=== PATIENT | female | born 1950 | race Caucasian/White ===

== ENCOUNTER 2020-05-28 10:23 | Emergency (ER) | payer MEDICARE, OTHER, SELFPAY ==
[2020-05-28] VITALS (8 sets, daily range): BP systolic 111–145; BP diastolic 64–75; PULSE 70–84; RESP 14–18; TEMP 37.1–38; O2SAT 95–98; BMI 31.8
--- NOTE | 2020-05-28 11:07 | XRR_ITS ---
PROCEDURE INFORMATION: Exam: XR Chest, 1 View Exam date and time: 05/28/2020 11:08 AM Age: 70 years old Clinical indication: Patient HX: Fatigue, low grade fever TECHNIQUE: Imaging protocol: XR of the chest Views: 1 view. COMPARISON: No relevant prior studies available. FINDINGS: Lungs: Unremarkable. No consolidation. Pleural space: Unremarkable. No pleural effusion. No pneumothorax. Heart/Mediastinum: Unremarkable. No cardiomegaly. Bones/joints: Unremarkable. XR/XR chest 1V portable [id number] IMPRESSION: No acute findings.
--- NOTE | 2020-05-28 11:56 | W.ED.GENADLT ---
HPI - General Adult General: Chief complaint: General Medical Stated complaint: phy referral Time Seen by Provider: 05/28/20 11:40 History of Present Illness: HPI narrative: This patient is a 70 year old female presenting with generalized weakness, fatigue, chills, anorexia, diarrhea and headache. Her also notes that she has not been thinking clearly. Symptoms started on Thursday while she was in [place] for a . She says that before that she has done a major cleaning of her house for a few days and then had a long drive to [place] on . She initially thought she was just exhausted. She saw Dr. Navarro today and he wanted her to come to the ED and be worked up for possible infection. She denies pain anywhere - no cough, shortness of breath, chest pain, abdominal pain, urinary symptoms, rash. She had a headache and sharp pain in her temples, but that went away with some aspirin and is not there now. She had rheumatic fever as a child and has an irregular heart beat at times - she takes atenolol for that and it hasn't been a problem. Dr. navarro told her she had lost 8 pounds since her last visit and she has not been trying to lose weight. Onset (ago): day(s) (3) Associated symptoms: Reports confusion, decreased appetite, fevers/chills, headache(s), malaise and weakness; Deny chest pain, dyspnea, nausea, rash or vomiting Review of Systems General: Reports: 10 or more systems reviewed and unremarkable except in HPI and below Const: Reports: chills, body aches, malaise and change in sleep pattern Eyes: Denies: change in vision ENMT: Denies: odynophagia Card: Denies: chest pain or swelling of feet/ankles Resp: Denies: dyspnea, productive cough or non-productive cough GI: Reports: diarrhea; Denies: abdominal pain, nausea or vomiting : Denies: flank pain or difficulty voiding Musc: Denies: neck pain or back pain Skin/Breast: Denies: rash Neuro: Reports: headache(s) and confusion Aguilar/Lymph: Denies: easy bruising or easy bleeding PFSH ED PFSH: Social History Smoking and tobacco status: never smoked Physical Exam Const: COMMON NORMALS: no acute distress, patient oriented x3, no limitations and alert GENERAL APPEARANCE: cooperative and comfortable HENMT: HEAD & SCALP: normal to inspection FACE & SINUS: normal facial exam Eye: GENERAL EYE: appearance normal, both eyes and all related structures Neck/C-Spine: COMMON NORMALS: supple, no meningeal signs and no JVD Chest: COMMONS NORMALS: normal inspection of the chest Resp: COMMON NORMALS: normal respiratory effort, No use of accessory muscles and clear to auscultation bilaterally AUSCULTATION: clear to auscultation bilaterally Cardio: COMMON NORMALS: no JVD, regular rate and regular rhythm RATE: regular rate RHYTHM: regular rhythm HEART SOUNDS: Murmur heart sound present (12/05) systolic GI: COMMON NORMALS: Normal to inspection, nondistended, normoactive bowel sounds present, Soft to palpation and non-tender INSPECTION: Yes normal to inspection AUSCULTATION: Yes normoactive bowel sounds PALPATION: Yes Soft to palpation Back/Pelvis: COMMON NORMALS: thoracic and lumbar spine normal to inspection Extremity: COMMON NORMALS: normal to inspection Neuro: COMMON NORMALS: patient oriented x3, moves all extremities, no focal motor deficits and no sensory deficits noted SENSORIUM/ORIENTATION: Yes alert MENINGEAL SIGNS: Yes no meningeal signs Psych: COMMON NORMALS: mental status grossly normal, cooperative and normal affect Skin: COMMON NORMALS: no rashes or lesions noted and turgor normal GENERAL SKIN EXAM: no rashes or lesions noted and turgor normal Course ED course: Patient's labs show a white count of 3.4. Hemoglobin is normal. Platelets are only 71. Electrolytes are a sodium of 131, potassium 3.7. CO2 is 21. LFTs are slightly elevated at 144 for the AST and 77 for the ALT. Lactate is normal at 1.2. Urinalysis shows trace leuk esterase and 1+ bacteria but negative nitrite and negative white cells. That is +1 for protein, ketones and +2 for blood. There is no red blood cells on the micro. Sed rate was 9. Chest x-ray was clear. I spoke with Dr. Navarro and he had no record of prior elevated LFTs or low platelets. In discussion with him we decided to add a tick panel and given that she is having some GI symptoms and elevated LFTs we will also get a CT scan. We discussed possibly testing for COVID due to her travel to [place] but her symptoms actually started within 1 day of arrival there and are not likely related to the travel. She has not had exposure to anyone locally that she knows of. Reevaluation(s): Reevaluation #1: CT did not show any specific findings. Additional labs were significant for an elevated d-dimer at 3.95. She had a COVID test done and will be discharged home. She did develop a slight fever while in the ER, just above 100. She also had a headache again and was given some aspirin. She understands that she needs to return immediately if she is worsening in any way. I did put her on some doxycycline to cover the possibility of a UTI of the possibility of a tick related illness given that some of her lab values could be consistent with that as well as COVID. Vital Signs: Vital signs: Vital Signs Temperature 100.4 F H 05/28/20 17:01 Pulse Rate 77 05/28/20 17:30 Respiratory Rate 14 05/28/20 17:30 Blood Pressure 118/75 05/28/20 17:30 Pulse Oximetry 97 05/28/20 17:30 [facility] - General Adult Lab Data: Labs: Lab Results 05/28/20 05/28/20 05/28/20 Range/Units 11:45 12:00 12:00 WBC 3.4 L (4.0-10.0) 10^3/ uL RBC 5.10 (4.1-5.3) 10^6/u L Hgb 15.5 H (11.5-15.3) g/dL Hct 46.0 (37.0-47.0) % MCV 90.2 (81-99) fL MCH 30.4 (28.0-34.0) pg MCHC 33.7 (30.0-36.0) g/dL RDW 12.9 (12.1-15.1) % Plt Count 71 L (130-400) 10^3/c mm MPV 12.9 H (7.4-10.4) fL Neut % (Auto) 65.1 % Lymph % (Auto) 27.3 % [place] % (Auto) 7.0 % Eos % (Auto) 0.0 % Baso % (Auto) 0.3 % Neut # (Auto) 2.2 (1.8-7.7) 10^3/u L Lymph # (Auto) 0.9 (0.8-4.8) 10^3/u L [place] # (Auto) 0.2 (0.2-0.9) 10^3/u L Eos # (Auto) 0.0 (0.0-0.8) 10^3/u L Baso # (Auto) 0.0 (0.0-0.1) 10^3/u L Nucleated RBC % (a uto) 0 % Nucleated RBCs # 0.0 /100WBC ESR (0-15) mm/hr PT (10.5-13.3) SECO NDS INR (0.8-1.2) D-Dimer (0-0.59) ug/mIFE U Sodium 131 L (136-145) mmol/L Potassium 3.7 (3.5-5.1) mmol/L Chloride 95 L (98-107) mmol/L Carbon Dioxide 21 L (22-29) mmol/L Anion Gap 18.7 (5-19) BUN 21 (8-23) mg/dL Creatinine 0.8 (0.5-0.9) mg/dL GFR Calculation 70.9 L (90-130) mL/min Glucose 118 H (65-115) mg/dL Calculated Osmolal ity 270 L (285-295) mOsm/k g Lactate (0.5-2.2) mmol/L Calcium 9.5 (8.5-10.5) mg/dL Total Bilirubin 0.9 (0.15-1.2) mg/dL AST 144 H (0-32) U/L ALT 77 H (0-33) U/L Alkaline Phosphata se 69 (35-105) IU/L Troponin T Baselin e (0-10) ng/L Troponin T 120 Min te-moak (0-10) ng/L Delta Troponin T (0-10) ABS# Total Protein 7.2 (6.6-8.7) g/dL Albumin 4.2 (3.5-5.2) g/dL Globulin 3.0 (1.3-4.6) g/dL Procalcitonin (0-0.5) ng/mL Urine Color Yellow (Yellow) Urine Appearance Clear (CLEAR) Urine pH 5.0 (5-7) Ur Specific Gravit y 1.020 (1.005-1.030) Urine Protein 1+ H (Negative) Urine Glucose (UA) Norm (Normal) Urine Ketones 1+ H (Negative) Urine Blood 2+ H (Negative) Urine Nitrate Negative (Negative) Urine Bilirubin Neg (NEGATIVE) Urine Urobilinogen 1 H (Negative) mg/dL Ur Leukocyte Nery ase Trace H (Negative) Urine RBC None (0-2) /hpf Urine WBC None (0-5) /hpf Ur Squamous Epith Cells 0-4 H (0-5) Amorphous Sediment Not Reportable Urine Bacteria 1+ H (NONE) Urine Mucus 1+ 05/28/20 05/28/20 05/28/20 Range/Units 12:00 12:00 12:00 WBC (4.0-10.0) 10^3/ uL RBC (4.1-5.3) 10^6/u L Hgb (11.5-15.3) g/dL Hct (37.0-47.0) % MCV (81-99) fL MCH (28.0-34.0) pg MCHC (30.0-36.0) g/dL RDW (12.1-15.1) % Plt Count (130-400) 10^3/c mm MPV (7.4-10.4) fL Neut % (Auto) % Lymph % (Auto) % [place] % (Auto) % Eos % (Auto) % Baso % (Auto) % Neut # (Auto) (1.8-7.7) 10^3/u L Lymph # (Auto) (0.8-4.8) 10^3/u L [place] # (Auto) (0.2-0.9) 10^3/u L Eos # (Auto) (0.0-0.8) 10^3/u L Baso # (Auto) (0.0-0.1) 10^3/u L Nucleated RBC % (a uto) % Nucleated RBCs # /100WBC ESR 9 (0-15) mm/hr PT 13.60 H (10.5-13.3) SECO NDS INR 1.01 (0.8-1.2) D-Dimer 3.95 H (0-0.59) ug/mIFE U Sodium (136-145) mmol/L Potassium (3.5-5.1) mmol/L Chloride (98-107) mmol/L Carbon Dioxide (22-29) mmol/L Anion Gap (5-19) BUN (8-23) mg/dL Creatinine (0.5-0.9) mg/dL GFR Calculation (90-130) mL/min Glucose (65-115) mg/dL Calculated Osmolal ity (285-295) mOsm/k g Lactate 1.2 (0.5-2.2) mmol/L Calcium (8.5-10.5) mg/dL Total Bilirubin (0.15-1.2) mg/dL AST (0-32) U/L ALT (0-33) U/L Alkaline Phosphata se (35-105) IU/L Troponin T Baselin e (0-10) ng/L Troponin T 120 Min te-[place] (0-10) ng/L Delta Troponin T (0-10) ABS# Total Protein (6.6-8.7) g/dL Albumin (3.5-5.2) g/dL Globulin (1.3-4.6) g/dL Procalcitonin (0-0.5) ng/mL Urine Color (Yellow) Urine Appearance (CLEAR) Urine pH (5-7) Ur Specific Gravit y (1.005-1.030) Urine Protein (Negative) Urine Glucose (UA) (Normal) Urine Ketones (Negative) Urine Blood (Negative) Urine Nitrate (Negative) Urine Bilirubin (NEGATIVE) Urine Urobilinogen (Negative) mg/dL Ur Leukocyte Nery ase (Negative) Urine RBC (0-2) /hpf Urine WBC (0-5) /hpf Ur Squamous Epith Cells (0-5) Amorphous Sediment Urine Bacteria (NONE) Urine Mucus 05/28/20 05/28/20 05/28/20 Range/Units 12:00 12:00 14:05 WBC (4.0-10.0) 10^3/ uL RBC (4.1-5.3) 10^6/u L Hgb (11.5-15.3) g/dL Hct (37.0-47.0) % MCV (81-99) fL MCH (28.0-34.0) pg MCHC (30.0-36.0) g/dL RDW (12.1-15.1) % Plt Count (130-400) 10^3/c mm MPV (7.4-10.4) fL Neut % (Auto) % Lymph % (Auto) % [place] % (Auto) % Eos % (Auto) % Baso % (Auto) % Neut # (Auto) (1.8-7.7) 10^3/u L Lymph # (Auto) (0.8-4.8) 10^3/u L [place] # (Auto) (0.2-0.9) 10^3/u L Eos # (Auto) (0.0-0.8) 10^3/u L Baso # (Auto) (0.0-0.1) 10^3/u L Nucleated RBC % (a uto) % Nucleated RBCs # /100WBC ESR (0-15) mm/hr PT (10.5-13.3) SECO NDS INR (0.8-1.2) D-Dimer (0-0.59) ug/mIFE U Sodium (136-145) mmol/L Potassium (3.5-5.1) mmol/L Chloride (98-107) mmol/L Carbon Dioxide (22-29) mmol/L Anion Gap (5-19) BUN (8-23) mg/dL Creatinine (0.5-0.9) mg/dL GFR Calculation (90-130) mL/min Glucose (65-115) mg/dL Calculated Osmolal ity (285-295) mOsm/k g Lactate (0.5-2.2) mmol/L Calcium (8.5-10.5) mg/dL Total Bilirubin (0.15-1.2) mg/dL AST (0-32) U/L ALT (0-33) U/L Alkaline Phosphata se (35-105) IU/L Troponin T Baselin e 12 H (0-10) ng/L Troponin T 120 Min te-moak 11.06 H (0-10) ng/L Delta Troponin T -0.94 L (0-10) ABS# Total Protein (6.6-8.7) g/dL Albumin (3.5-5.2) g/dL Globulin (1.3-4.6) g/dL Procalcitonin 0.68 H (0-0.5) ng/mL Urine Color (Yellow) Urine Appearance (CLEAR) Urine pH (5-7) Ur Specific Gravit y (1.005-1.030) Urine Protein (Negative) Urine Glucose (UA) (Normal) Urine Ketones (Negative) Urine Blood (Negative) Urine Nitrate (Negative) Urine Bilirubin (NEGATIVE) Urine Urobilinogen (Negative) mg/dL Ur Leukocyte Nery ase (Negative) Urine RBC (0-2) /hpf Urine WBC (0-5) /hpf Ur Squamous Epith Cells (0-5) Amorphous Sediment Urine Bacteria (NONE) Urine Mucus Discharge Plan Discharge Patient Disposition: Home, Self-Care Clinical Impression: COVID-19 virus test result unknown, Acute UTI Fever Qualifiers: Fever type: unspecified Qualified Code(s): R50.9 - Fever, unspecified Condition: Stable Prescriptions: New doxycycline hyclate 100 mg capsule 100 mg PO BID 14 Days Qty: 28 RF: 0 No Action multivitamin Tablet 1 tab PO DAILY RF: 0 aspirin 325 mg Tablet See Rx Instructions .ROUTE .COMPLEX RF: 0 Calcium 600 600 mg calcium (1,500 mg) Tablet 600 mg PO DAILY RF: 0 Vitamin C 500 mg Tablet 500 mg PO DAILY RF: 0 atenolol 50 mg tablet 50 mg PO DAILY RF: 0 loratadine 10 mg Tablet 10 mg PO DAILY RF: 0 Vitamin D3 25 mcg (1,000 unit) Capsule 25 mcg PO DAILY RF: 0 PreserVision AREDS-2 [id number] cm-pwvw-jc-mg Capsule 1 tab PO DAILY RF: 0 Discharge Orders: Discharge Order (Routine); Ordered 05/28/20 Ordered By: Ana Vila Referrals: Bjorn Navarro MD [Family Provider] - Discharge Diet: Advance as tolerated Discharge Activity: Limit activity as instructed Patient Instructions: Fever in Adults (ED) Activity Restrictions/Additional Instructions: Rest. Return to the ED if worse in any way including higher fever, shortness of breath, worse headache. You may continue to use aspirin for your headache. Call Dr. Navarro's office in the morning to check in and see when they like to follow-up with you. Take the antibiotic as prescribed to treat possible infection. Discharge Date/Time: 05/28/20 17:31 Coding Level of Care Code ED [facility] Exam Comprehensive
[2020-05-28 12:17] LABS: Bilirubin Urine Neg (NEGATIVE); Blood Urine 2+ (Negative); Glucose Urine UA Norm (Normal); Ketones Urine 1+ (Negative); Leukocyte Esterase Urine Trace (Negative); Nitrate Urine Negative (Negative); Protein Urine 1+ (Negative); Urine Appearance Clear (CLEAR); Urine Color Yellow (Yellow); Urobilinogen Urine 1 mg/dL (Negative)
[2020-05-28 12:18] LABS: Add Urine Culture? No; Add Urine Microscopic? YES; Bacteria Urine 1+; Mucus Urine 1+; Squamous Epithelial Cell Urine 0-4 (0-5)
[2020-05-28 12:25] LABS: Alanine Aminotransferase 77 U/L (0-33); Albumin Level 4.2 g/dL (3.5-5.2); Alkaline Phosphatase 69 IU/L (35-105); Anion Gap 18.7 (5-19); Aspartate Amino Transferase 144 U/L (0-32); Blood Urea Nitrogen 21 mg/dL (8-23); Calcium 9.5 mg/dL (8.5-10.5); Carbon Dioxide 21 mmol/L (22-29); Chloride 95 mmol/L (98-107); Glomerular Filtration Rate 70.9 mL/min (90-130); Glucose 118 mg/dL (65-115); Lactate (Lactic Acid level) 1.2 mmol/L (0.5-2.2); Osmolality Calculated 270 mOsm/kg (285-295); Potassium 3.7 mmol/L (3.5-5.1); Sodium 131 mmol/L (136-145); Total Bilirubin 0.9 mg/dL (0.15-1.2); Total Protein 7.2 g/dL (6.6-8.7)
[2020-05-28 12:36] LABS: Basophils % 0.3 %; Hemoglobin 15.5 g/dL (11.5-15.3); Lymphocytes # 0.9 10^3/uL (0.8-4.8); Lymphocytes % 27.3 %; Mean Corpuscular HGB Conc 33.7 g/dL (30.0-36.0); Mean Corpuscular Hemoglobin 30.4 pg (28.0-34.0); Mean Corpuscular Volume 90.2 fL (81-99); Mean Platelet Volume 12.9 fL (7.4-10.4); Monocytes # 0.2 10^3/uL (0.2-0.9); Neutrophils # 2.2 10^3/uL (1.8-7.7); Neutrophils % 65.1 %; Nucleated Red Blood Cells % 0 %; Platelet Count 71 10^3/cmm (130-400); Red Cell Distribution Width 12.9 % (12.1-15.1); White Blood Count 3.4 10^3/uL (4.0-10.0)
[2020-05-28 12:55] LABS: Slide Review Slide Review Perform
[2020-05-28 13:30] LABS: Erythrocyte Sedimentation Rate 9 mm/hr (0-15)
--- NOTE | 2020-05-28 13:52 | ECG_ITS ---
[facility] Test Date: 2020-05-28 Pat Name: Parisa Krishnan Department: Room: Gender: Female Care Professional: : 1950 Requested By: Ana Nesbitt Order Number: [id number] Reading MD: Luciano Viera M.D. Measurements Intervals [place] Rate: 77 P: 72 MT: 155 QRS: -4 QRSD: 83 T: -11 QT: 347 QTc: 395 Interpretive Statements SINUS RHYTHM ST DEVIATION AND MODERATE T-WAVE ABNORMALITY, CONSIDER ANTERIOR ISCHEMIA [-0.1+ mV T WAVE IN V3/V4] No previous ECG available for comparison Electronically Signed On 05-28-2020 16:54:31 CDT by Luciano Viera M.D. [id number]
--- NOTE | 2020-05-28 14:06 | PC.NURSE ---
nurse in room
[2020-05-28 14:09] LABS: INR 1.01 (0.8-1.2)
[2020-05-28 14:12] LABS: D Dimer 3.95 ug/mIFEU (0-0.59)
[2020-05-28 14:17] LABS: Troponin(5th) Baseline 12 ng/L (0-10)
[2020-05-28 14:25] LABS: Procalcitonin 0.68 ng/mL (0-0.5)
--- NOTE | 2020-05-28 14:25 | CTR_ITS ---
PROCEDURE INFORMATION: Exam: CT Angiography Chest With Contrast Exam date and time: 05/28/2020 2:35 PM Age: 70 years old Clinical indication: Abnormal findings; Abnormal lab test; Abnormal function test of other organs/systems; Abnormal diagnostic tests; Elevated d-dimer; Patient HX: General weakness. Elevated d dimer and lfts; Additional info: Chills, diarrhea, elevated lft and d-dimer TECHNIQUE: Imaging protocol: Computed tomographic angiography of the chest with intravenous contrast. 3D rendering: MIP and/or 3D reconstructed images were created by the technologist. Radiation optimization: All CT scans at this facility use at least one of these dose optimization techniques: automated exposure control; mA and/or kV adjustment per patient size (includes targeted exams where dose is matched to clinical indication); or iterative reconstruction. Contrast material: OMNI 350; Contrast volume: 95 ml; Contrast route: INTRAVENOUS (IV); COMPARISON: CR XR chest 1V portable [id number] 05/28/2020 11:37 AM RADIATION DOSE METRICS: Total DLP (mGy-cm): 1463.13 FINDINGS: Pulmonary arteries: Normal. No pulmonary emboli. Aorta: Unremarkable. No aortic aneurysm. No aortic dissection. Lungs: Unremarkable. No consolidation. No masses. Pleural space: Unremarkable. No pneumothorax. No pleural effusion. Heart: Unremarkable. No cardiomegaly. No pericardial effusion. Lymph nodes: Unremarkable. No enlarged lymph nodes. Bones/joints: Degenerative change is identified in the spine. There is no evidence for acute fracture or malalignment. Soft tissues: Unremarkable. IMPRESSION: There are no acute concerning abnormalities. There is no evidence for a pulmonary embolus. PROCEDURE INFORMATION: Exam: CT Abdomen And Pelvis With Contrast Exam date and time: 05/28/2020 2:35 PM Age: 70 years old Clinical indication: Abnormal findings; Abnormal lab test; Abnormal function test of other organs/systems; Abnormal diagnostic tests; Elevated d-dimer; Patient HX: General weakness. Elevated d dimer and lfts; Additional info: Chills, diarrhea, elevated lft and d-dimer TECHNIQUE: Imaging protocol: Computed tomography of the abdomen and pelvis with intravenous contrast. Radiation optimization: All CT scans at this facility use at least one of these dose optimization techniques: automated exposure control; mA and/or kV adjustment per patient size (includes targeted exams where dose is matched to clinical indication); or iterative reconstruction. Contrast material: OMNI 350; Contrast volume: 95 ml; Contrast route: INTRAVENOUS (IV); COMPARISON: CR XR chest 1V portable [id number] 05/28/2020 11:37 AM RADIATION DOSE METRICS: Total DLP (mGy-cm): 1463.13 FINDINGS: Liver: Normal. No mass. Gallbladder and bile ducts: Normal. No calcified stones. No ductal dilation. Pancreas: Normal. No ductal dilation. Spleen: Normal. No splenomegaly. Adrenals: Normal. No mass. Kidneys and ureters: Normal. No hydronephrosis. Stomach and bowel: Unremarkable. No obstruction. No mucosal thickening. Appendix: No evidence of appendicitis. Intraperitoneal space: Unremarkable. No free air. No significant fluid collection. Vasculature: Unremarkable. No abdominal aortic aneurysm. Lymph nodes: Unremarkable. No enlarged lymph nodes. Bladder: Unremarkable as visualized. Reproductive: Unremarkable as visualized. Bones/joints: Unremarkable. No acute fracture. Soft tissues: Unremarkable. CT/CT angio chest w abd pel w con IMPRESSION: No acute findings. Radiation Dose CTDIVOL = (mGy): DLP = 1463.13~1463.13 (mGy-cm)
[2020-05-28 14:34] LABS: Troponin 5 2HR 11.06 ng/L (0-10)
[2020-05-28 14:37] LABS: Troponin 5 2HR Delta -0.94 ABS# (0-10)
[2020-05-28] MEDS: sodium chloride 0.9% 1,000 ML 999 ML IV (14:47)
[2020-05-28] MEDS: aspirin 325 mg Tablet 650 MG PO (16:59)
[2020-05-30 07:20] LABS: Quest SARS-CoV-2 RNA NOT DETECTED (NOT DETECTED)
[2020-05-30 13:00] LABS: Lyme AB Screen <0.90 index
[2020-06-03 16:15] LABS: E. Chaffeensis AB IGG <1:64; E. Chaffeensis AB IGM <1:20
[2020-06-05 16:31] LABS: RMSF IGG DETECTED; RMSF IGM NOT DETECTED
== END 2020-05-28 17:31 | disposition home or self-care (01) ==
PROVIDERS: Nurse Practitioner Family; Emergency Provider Emergency Medicine; Family Provider Family Medicine
DX: Z20.828 Contact with and (suspected) exposure to other viral communicable diseases (principal); Z79.82 Long term (current) use of aspirin; N39.0 Urinary tract infection, site not specified
CPT/HCPCS: 12345; 36415; 71045; 71275; 74177; 80053; 81001; 83605; 84145; 84484; 85025; 85378; 85610; 85651; 86618; 86666; 86757; 87040; 87635; 93005; 96360; 96361; 99283; 99284; J7030; Q9967

== ENCOUNTER → 2020-11-19 10:51 | Outpatient (BNVA) | payer MEDICARE, OTHER, SELFPAY | PROVIDERS: Family Provider Family Medicine; Visit Provider Family Medicine | DX: Z20.828 Contact with and (suspected) exposure to other viral communicable diseases (principal) | CPT/HCPCS: 87635 ==

== ENCOUNTER 2022-05-08 08:37 | Outpatient (CLI) | payer MEDICARE, OTHER, SELFPAY ==
--- NOTE | 2022-05-08 08:53 | MM_ITS ---
WS: [id number] VIEWS: MLO and CC views both breasts. 3D digital tomosynthesis is also included in this exam. Comparison made with prior exam of 08/01/2009, 01/14/2013, 04/28/2014, 07/19/2015, 09/16/2016,. Findings: There was no sign of mass, architectural distortion or suspicious calcification in either breast. Sc attered fibroglandular densities MM/[place] [id number] Impression: BI-RADS: 2-Benign FOLLOW-UP: 1 Year Follow-up This mammogram was also analyzed by the Computer Aided Detection System R2 Imag e Chemical Librarian.
== END 2022-05-08 08:38 | disposition home or self-care (01) ==
LOC: RAD 08:42
PROVIDERS: Visit Provider Family Medicine
DX: Z12.31 Encounter for screening mammogram for malignant neoplasm of breast (principal)
CPT/HCPCS: 77063; 77067

== ENCOUNTER → 2024-01-13 11:35 | Outpatient (BNVA) | payer MEDICARE, OTHER, SELFPAY | PROVIDERS: PCP Family Medicine; Visit Provider Family Medicine | DX: R30.0 Dysuria (principal); N39.0 Urinary tract infection, site not specified; Z51.81 Encounter for therapeutic drug level monitoring; I10 Essential (primary) hypertension; R53.81 Other malaise; R53.83 Other fatigue; E55.9 Vitamin D deficiency, unspecified; E53.8 Deficiency of other specified B group vitamins; R73.09 Other abnormal glucose; Z13.220 Encounter for screening for lipoid disorders; Z79.899 Other long term (current) drug therapy | CPT/HCPCS: 80053; 80061; 81000; 82306; 82607; 83036; 84443; 85025; 86141; 87086 ==

== ENCOUNTER 2024-06-02 18:10 | Inpatient (IN) | payer MEDICARE, SELFPAY ==
[2024-06-02] VITALS (10 sets, daily range): BP systolic 134–177; BP diastolic 65–89; PULSE 58–90; RESP 15–18; TEMP 37.1–37.3; O2SAT 94–99; BMI 30.9
--- NOTE | 2024-06-02 18:18 | PC.NURSE ---
Charge nurse notified of patient's neuro symptoms, pt taken to ER room 5
--- NOTE | 2024-06-02 18:35 | CTR_ITS ---
PROCEDURE INFORMATION: Exam: CTA Head With Contrast, Arteriography Exam date and time: 06/02/2024 6:49 PM Age: 74 years old Clinical indication: Stroke-like symptoms; Other: See above TECHNIQUE: Imaging protocol: Computed tomographic angiography of the head with contrast. Exam focused on the arteries. 3D rendering (Not supervised by radiologist): MIP and/or 3D reconstructed images were created by the technologist. Radiation optimization: All CT scans at this facility use at least one of these dose optimization techniques: automated exposure control; mA and/or kV adjustment per patient size (includes targeted exams where dose is matched to clinical indication); or iterative reconstruction. Contrast material: OMNI 350; Contrast volume: 100 ml; Contrast route: INTRAVENOUS (IV); COMPARISON: CT head thrombolytic [id number] 06/02/2024 6:37 PM RADIATION DOSE METRICS: Total DLP (mGy-cm): 515.16 FINDINGS: ANTERIOR CIRCULATION: Right internal carotid artery: Patent. Right middle cerebral artery: Patent. Right anterior cerebral artery: Patent. Left internal carotid artery: Patent. There is a 3 mm aneurysm projecting superiorly from the left clinoid ICA (image 66 of series 7). Left middle cerebral artery: Patent. Left anterior cerebral artery: Patent. POSTERIOR CIRCULATION: Right vertebral artery: Patent. Left vertebral artery: Patent. Basilar artery: Patent. Right posterior cerebral artery: Patent. Left posterior cerebral artery: Patent. PROCEDURE INFORMATION: Exam: CTA Neck With Contrast Exam date and time: 06/02/2024 6:49 PM Age: 74 years old Clinical indication: Stroke-like symptoms; Other: See above TECHNIQUE: Imaging protocol: Computed tomographic angiography of the neck with contrast. Exam focused on the cervical segments of the vasculature. 3D rendering (Not supervised by radiologist): MIP and/or 3D reconstructed images were created by the technologist. Radiation optimization: All CT scans at this facility use at least one of these dose optimization techniques: automated exposure control; mA and/or kV adjustment per patient size (includes targeted exams where dose is matched to clinical indication); or iterative reconstruction. Contrast material: OMNI 350; Contrast volume: 100 ml; Contrast route: INTRAVENOUS (IV); COMPARISON: CT head thrombolytic [id number] 06/02/2024 6:37 PM RADIATION DOSE METRICS: Total DLP (mGy-cm): 515.16 FINDINGS: Aortic arch: No aneurysmal dilatation or dissection of the visualized thoracic aorta. Right common carotid artery: Patent. No evidence of hemodynamically significant stenosis. Right internal carotid artery: Patent. No evidence of hemodynamically significant stenosis. Right external carotid artery: Patent. Left common carotid artery: Patent. No evidence of hemodynamically significant stenosis. Left internal carotid artery: Patent. No evidence of hemodynamically significant stenosis. Left external carotid artery: Patent. Right vertebral artery: Patent. Left vertebral artery: Patent. Soft tissues: 15 mm right-sided thyroid nodule. No evidence of fluid collection or hematoma. Bones/joints: No evidence of acute fracture or subluxation of the cervical spine. Multilevel moderate-severe foraminal stenosis of the cervical spine, including C3-C4 on the right, C4-C5 on the left, C5-C6 on the right and C6-C7 bilaterally. CT/CT angio headneck* [id number] IMPRESSION: 1. No evidence of large vessel occlusion or acute thrombosis in the head. 2. 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 IMPRESSION: 1. No evidence of acute thrombosis or hemodynamically significant stenosis in the neck. 2. Moderate-severe multilevel foraminal stenosis of the cervical spine. Consider correlation with follow-up outpatient MRI to evaluate for neural impingement. 3. 15 mm right-sided thyroid nodule. Correlation with thyroid function tests and follow-up outpatient thyroid ultrasound is recommended. REFERENCES: NASCET CRITERIA. The degree of stenosis in the cervical segment of the internal carotid artery is based on NASCET criteria. Normal is no stenosis. Mild is less than 50% stenosis. Moderate is 50-69% stenosis. Severe is 70% to 99% stenosis. Total occlusion is no detectable patent lumen.
--- NOTE | 2024-06-02 18:35 | CTR_ITS ---
PROCEDURE INFORMATION: Exam: CT Head Without Contrast Exam date and time: 06/02/2024 6:37 PM Age: 74 years old Clinical indication: Stroke-like symptoms; Other: Vision problems; Additional info: Symptoms of acute stroke TECHNIQUE: Imaging protocol: Computed tomography of the head without contrast. Radiation optimization: All CT scans at this facility use at least one of these dose optimization techniques: automated exposure control; mA and/or kV adjustment per patient size (includes targeted exams where dose is matched to clinical indication); or iterative reconstruction. Other technique: STROKE PROTOCOL was implemented. COMPARISON: CT head wo con* [id number] 08/16/2017 8:46 PM RADIATION DOSE METRICS: Total DLP (mGy-cm): 1084 FINDINGS: Brain: No hemorrhage. No edema. Moderate diffuse cerebral atrophy and mild sequela of chronic small vessel ischemic disease. No mass effect. Cerebral ventricles: No ventriculomegaly. Paranasal sinuses: Visualized sinuses are unremarkable. No fluid levels. Mastoid air cells: Visualized mastoid air cells are well aerated. Bones: Unremarkable. No acute fracture. Soft tissues: Unremarkable. CT/CT head thrombolytic [id number] IMPRESSION: No acute intracranial abnormality. ASSESSMENT: ASPECTS ([place] Stroke Program Early CT Score) is 10.
--- NOTE | 2024-06-02 18:35 | ECG_ITS ---
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 Measurements Intervals [place] Rate: 77 P: 67 [place]: 147 QRS: -2 QRSD: 80 T: 7 QT: 358 QTc: 407 Interpretive Statements SINUS RHYTHM LOW QRS VOLTAGE IN PRECORDIAL LEADS [QRS DEFLECTION < 1.0 mV IN CHEST LEADS] MODERATE ST DEPRESSION [0.05+ mV ST DEPRESSION] Compared to ECG 05/28/2020 14:10:31 Low QRS voltage now present ST (T wave) deviation now present T-wave abnormality no longer present Possible ischemia no longer present Electronically Signed On 06-02-2024 20:18:43 CDT by Viktor Aguiar M.D. [id number]
--- NOTE | 2024-06-02 18:46 | W.ED.NEUROSD ---
HPI - Neuro Symptoms/Deficit General: Chief Complaint: Neuro Symptoms/Deficit Stated Complaint: left eye is losing vision loss of balance Time Seen by Provider: 06/02/24 18:24 History of Present Illness: Patient comes in with stroke symptoms. States that at 234 hours prior to arrival she developed sudden onset vision loss in the right side of her left eye. States she does not see out of her right eye so she does not know if it happened there as well. States she also developed an abnormal gait felt like she was off balance and had to hold onto things to walk. Denies any one-sided weakness or numbness. Review of Systems General: Reports: 10 or more systems reviewed and unremarkable except in HPI and below PFSH ED PFSH: Social History Smoking and tobacco/nicotine status: never used tobacco/nicotine Physical Exam Const: COMMON NORMALS: no acute distress, patient oriented x3, healthy appearing and alert HENMT: COMMON NORMALS: normocephalic and atraumatic HEAD & SCALP: normocephalic and atraumatic Eye: COMMON NORMALS: Equal, round and reactive pupils present and EOMs intact bilaterally PUPIL: Yes Equal, round and reactive pupils present Neck/C-Spine: COMMON NORMALS: full ROM and supple Resp: COMMON NORMALS: normal respiratory effort, No retractions and No use of accessory muscles Cardio: COMMON NORMALS: regular rate and regular rhythm RATE: regular rate RHYTHM: regular rhythm Extremity: COMMON NORMALS: normal to inspection and full ROM Neuro: COMMON NORMALS: patient oriented x3 SENSORIUM/ORIENTATION: Yes alert OTHER: NIHSS= 0 Truncal stability normal Nystagmus normal Psych: COMMON NORMALS: mental status grossly normal and cooperative Skin: COMMON NORMALS: no rashes or lesions noted and no wounds GENERAL SKIN EXAM: no rashes or lesions noted Course Vital Signs: Vital signs: Vital Signs Temperature 99.1 F 06/02/24 18:19 Pulse Rate 58 L 06/02/24 20:14 Respiratory Rate 15 06/02/24 20:14 Blood Pressure 148/74 06/02/24 20:14 Pulse Oximetry 96 06/02/24 20:14 Oxygen Delivery Me thod Room Air 06/02/24 20:14 MDM - Neuro Symptoms/Deficit Medical Decision Making Differential diagnosis: TIA, stroke, acute electrolyte abnormality Patient comes in with stroke symptoms. States that at 234 hours prior to arrival she developed sudden onset vision loss in the right side of her left eye. States she does not see out of her right eye so she does not know if it happened there as well. States she also developed an abnormal gait felt like she was off balance and had to hold onto things to walk. Denies any one-sided weakness or numbness. On physical exam her visual edgar are intact in the left eye at this time. Her gait is normal. Her symptoms seem to have resolved. Will check CT, labs, and reassess. On reassessment I talked to the patient about the test results. Her white blood cell count is normal at 5.8. Her sodium, potassium, and creatinine are within normal limits. Her head CT shows no acute intracranial abnormality. She continues to be asymptomatic at this time. I talked to Dr. Rivas with the hospitalist service and we will admit the patient for TIA workup. Lab Data 06/02/24 19:20 06/02/24 19:[address] 06/02/24 18:35 IMPRESSION: No acute intracranial abnormality. ASSESSMENT: ASPECTS (Alfreda Stroke Program Early CT Score) is 10. Head/Neck CTA 06/02/24 18:35 IMPRESSION: 1. No evidence of large vessel occlusion or acute thrombosis in the head. 2. 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 IMPRESSION: 1. No evidence of acute thrombosis or hemodynamically significant stenosis in the neck. 2. Moderate-severe multilevel foraminal stenosis of the cervical spine. Consider correlation with follow-up outpatient MRI to evaluate for neural impingement. 3. 15 mm right-sided thyroid nodule. Correlation with thyroid function tests and follow-up outpatient thyroid ultrasound is recommended. REFERENCES: NASCET CRITERIA. The degree of stenosis in the cervical segment of the internal carotid artery is based on NASCET criteria. Normal is no stenosis. Mild is less than 50% stenosis. Moderate is 50-69% stenosis. Severe is 70% to 99% stenosis. Total occlusion is no detectable patent lumen. Laboratory Results WBC 5.81 10^3/uL (3.29-11.43) 06/02/24 19:20 RBC 4.46 10^6/uL (3.85-5.65) 06/02/24 19:20 Hgb 13.30 g/dL (11.27-16.99) 06/02/24 19:20 Hct 40.9 % (36-47) 06/02/24 19:20 MCV 91.7 fl (85-98) 06/02/24 19:20 MCH 29.8 pg (27-33) 06/02/24 19:20 MCHC 32.5 g/dL (30-55) 06/02/24 19:20 RDW 13.2 % (12.1-15.1) 06/02/24 19:20 Plt Count 267 10^3/cmm (157-399) 06/02/24 19:20 MPV 10.8 fL (7.4-10.4) H 06/02/24 19:20 Neut % (Auto) 52.9 % 06/02/24 19:20 Lymph % (Auto) 35.3 % 06/02/24 19:20 [place] % (Auto) 8.8 % 06/02/24 19:20 Eos % (Auto) 2.1 % 06/02/24 19:20 Baso % (Auto) 0.7 % 06/02/24 19:20 Neut # (Auto) 3.08 10^3/uL (1.8-7.7) 06/02/24 19:20 Lymph # (Auto) 2.1 10^3/uL (0.8-4.8) 06/02/24 19:20 [place] # (Auto) 0.5 10^3/uL (0.2-0.9) 06/02/24 19:20 Eos # (Auto) 0.1 10^3/uL (0.0-0.8) 06/02/24 19:20 Baso # (Auto) 0.0 10^3/uL (0.0-0.1) 06/02/24 19:20 Nucleated RBC % (auto) 0 % 06/02/24 19:20 Nucleated RBCs # 0.0 /100WBC 06/02/24 19:20 PT 12.90 SECONDS (12.1-14.9) 06/02/24 19:20 INR 0.95 (0.8-1.2) 06/02/24 19:20 APTT 27.0 SECONDS (23.9-36.7) 06/02/24 19:20 Sodium 136 mmol/L (136-145) 06/02/24 19:20 Potassium 3.5 mmol/L (3.5-5.1) 06/02/24 19:20 Chloride 102 mmol/L (98-107) 06/02/24 19:20 Carbon Dioxide 25 mmol/L (22-29) 06/02/24 19:20 Anion Gap 12.5 (5-19) 06/02/24 19:20 BUN 17 mg/dL (8-23) 06/02/24 19:20 Creatinine 0.8 mg/dL (0.5-0.9) 06/02/24 19:20 GFR Calculation Not Reportable 06/02/24 19:20 Glucose 128 mg/dL (65-115) H 06/02/24 19:20 POC Glucose 138 mg/dL (70-110) H 06/02/24 19:10 Calculated Osmolality 285 mOsm/kg (285-295) 06/02/24 19:20 Calcium 9.3 mg/dL (8.5-10.5) 06/02/24 19:20 Total Bilirubin 0.3 mg/dL (0.15-1.2) 06/02/24 19:20 AST 18 U/L (0-32) 06/02/24 19:20 ALT 14 U/L (0-33) 06/02/24 19:20 Alkaline Phosphatase 92 U/L (35-105) 06/02/24 19:20 Total Protein 6.4 g/dL (6.6-8.7) L 06/02/24 19:20 Albumin 3.7 g/dL (3.5-5.2) 06/02/24 19:20 Globulin 2.7 g/dL (1.3-4.6) 06/02/24 19:20 Urine Color Yellow (Yellow) 06/02/24 19:26 Urine Appearance Clear (CLEAR) 06/02/24 19:26 Urine pH 6.5 (5-7) 06/02/24 19:26 Ur Specific [place] 1.010 (1.005-1.030) 06/02/24 19:26 Urine Protein 1+ (Negative) H 06/02/24 19:26 Urine Glucose (UA) Norm (Normal) 06/02/24 19:26 Urine Ketones 1+ (Negative) H 06/02/24 19:26 Urine Blood Neg (Negative) 06/02/24 19:26 Urine Nitrate Negative (Negative) 06/02/24 19:26 Urine Bilirubin Neg (Negative) 06/02/24 19:26 Urine Urobilinogen Neg mg/dL (Negative) 06/02/24 19:26 Ur Leukocyte Esterase Trace (Negative) H 06/02/24 19:26 Urine RBC 5-10 /hpf (0-2) H 06/02/24 19:26 Urine WBC 0-4 /hpf (0-5) H 06/02/24 19:26 Ur Squamous Epith Cells 5-10 /hpf (0-5) H 06/02/24 19:26 Calcium Oxalate Crystal 15-25 /hpf H 06/02/24 19:26 Amorphous Sediment Not Reportable 06/02/24 19:26 Urine Bacteria 1+ /hpf (NONE) H 06/02/24 19:26 Hyaline Casts 0-4 /lpf H 06/02/24 19:26 Urine Mucus 1+ /hpf 06/02/24 19:26 All radiology interpretation(s) finalized by discharge EKG Data EKG 1: Interpretation: ECG done June 02, 2024 at 7 PM and interpreted by me at 7:02 PM shows sinus rhythm, ventricular rate of 77 bpm, no ST segment elevation Discharge Plan Discharge Patient Disposition: Placed in Observation Clinical Impression: Transient ischemic attack Coding Level of Care Code ED Director Of Strategic Initiatives for Kellee Granados
[2024-06-02] MEDS: iohexol 350 mg/mL 500 mL Btl (per mL) IV (18:57)
[2024-06-02 19:14] LABS: Glucose Point of Care 138 mg/dL (70-110)
[2024-06-02 19:26] LABS: Basophils % 0.7 %; Eosinophils # 0.1 10^3/uL (0.0-0.8); Eosinophils % 2.1 %; Hematocrit 40.9 % (36-47); Lymphocytes # 2.1 10^3/uL (0.8-4.8); Lymphocytes % 35.3 %; Mean Corpuscular HGB Conc 32.5 g/dL (30-55); Mean Corpuscular Hemoglobin 29.8 pg (27-33); Mean Corpuscular Volume 91.7 fl (85-98); Mean Platelet Volume 10.8 fL (7.4-10.4); Monocytes # 0.5 10^3/uL (0.2-0.9); Monocytes % 8.8 %; Neutrophils # 3.08 10^3/uL (1.8-7.7); Neutrophils % 52.9 %; Nucleated Red Blood Cells % 0 %; Platelet Count 267 10^3/cmm (157-399); Red Blood Count 4.46 10^6/uL (3.85-5.65); Red Cell Distribution Width 13.2 % (12.1-15.1); White Blood Count 5.81 10^3/uL (3.29-11.43)
[2024-06-02 19:41] LABS: INR 0.95 (0.8-1.2)
[2024-06-02 19:46] LABS: Alanine Aminotransferase 14 U/L (0-33); Albumin Level 3.7 g/dL (3.5-5.2); Alkaline Phosphatase 92 U/L (35-105); Anion Gap 12.5 (5-19); Aspartate Amino Transferase 18 U/L (0-32); Blood Urea Nitrogen 17 mg/dL (8-23); Calcium 9.3 mg/dL (8.5-10.5); Carbon Dioxide 25 mmol/L (22-29); Chloride 102 mmol/L (98-107); Creatinine Clr Calc Pharmacy 59.1415; Globulin 2.7 g/dL (1.3-4.6); Glucose 128 mg/dL (65-115); Osmolality Calculated 285 mOsm/kg (285-295); Potassium 3.5 mmol/L (3.5-5.1); Sodium 136 mmol/L (136-145); Total Bilirubin 0.3 mg/dL (0.15-1.2); Total Protein 6.4 g/dL (6.6-8.7)
[2024-06-02 19:55] LABS: Add Urine Microscopic? YES; Bacteria Urine 1+ /hpf; Bilirubin Urine Neg (Negative); Blood Urine Neg (Negative); Calcium Oxalate Crystals Urine 15-25 /hpf; Glucose Urine UA Norm (Normal); Hyaline Casts Urine 0-4 /lpf; Ketones Urine 1+ (Negative); Leukocyte Esterase Urine Trace (Negative); Mucus Urine 1+ /hpf; Nitrate Urine Negative (Negative); Protein Urine 1+ (Negative); Urine Appearance Clear (CLEAR); Urine Color Yellow (Yellow); Urobilinogen Urine Neg (Negative); WBC Urine 0-4 /hpf (0-5); pH Urine 6.5 (5-7)
--- NOTE | 2024-06-02 21:21 | P.HP_ITS ---
Providers/Chief Complaint 2 Admitting Physician: Adelita Rivas MD Primary Care Provider: Bjorn Navarro MD Chief Complaint: left eye is losing vision loss of balance History of Present Illness Parisa Krishnan is a 74 year old female With no significant past medical history presented to the hospital today with strokelike symptoms. Few hours prior to arrival she developed sudden onset loss on the right side of her left eye and she has reduced vision from the right eye already 2/2 to macular degeneration therefore does not know there was an issue there. She felt she could not walk straight and was off balance. She had to hold onto things to get around. Denies any numbness or weakness. By the time she admitted to the ER symptoms started resolving and resolved later on. On physical exam her visual edgar and left eye were intact at the time. Gait was normal. All symptoms resolved in ER. CT head was checked, CT a head and neck done with no significant thrombosis or stenosis. Moderate to severe level foraminal stenosis of cervical spine present. 15 mm right-sided thyroid nodule present. No large vessel occlusion or acute thrombosis in the head. Labs unremarkable. UA shows trace leukocyte esterase, calcium oxalate crystals, 1+ bacteria. Medications/Allergies Home Medications Medication Instructions Recorded Confirmed Last Taken Type ascorbic acid (vitamin C) 500 mg 500 mg PO DAILY 05/28/20 06/02/24 06/02/24 History tablet (Vitamin C) calcium carbonate (Calcium 600) 600 mg PO DAILY 05/28/20 06/02/24 06/02/24 History cholecalciferol (vitamin D3) 25 25 mcg PO DAILY 05/28/20 06/02/24 06/02/24 History mcg (1,000 unit) capsule (Vitamin D3) multivitamin 1 tab PO DAILY 05/28/20 06/02/24 06/02/24 History vit C 250 mg-vit E 90 mg-zinc 40 1 tab PO DAILY 05/28/20 06/02/24 06/02/24 History mg-copper 1 [id number] capsule (PreserVision AREDS-2) cyanocobalamin (vitamin B-12) 1,000 mcg PO DAILY 01/13/24 06/02/24 06/02/24 History 1,000 mcg capsule atenolol 25 mg tablet See Rx Instructions .Route 06/06/24 07/04/24 07/04/24 Rx .COMPLEX #270 tabs Allergies Allergy/AdvReac Type Severity Reaction Status Date / Time Sulfa (Sulfonamide Allergy ALGY-Rash Verified 06/02/24 18:20 Antibiotics) PFSH Acute 2 PFSH: Social History Smoking and tobacco/nicotine status: never used tobacco/nicotine Vitals/I&O/Wt Last Vital Signs Temp 99.1 F 06/02/24 18:19 Pulse 67 06/02/24 21:06 Resp 15 06/02/24 21:06 BP 177/71 06/02/24 21:06 Pulse Ox 96 06/02/24 20:14 O2 Del Method Room Air 06/02/24 21:06 Weight last 48 hrs Weight 76.657 kg Weight 76.657 kg Physical Exam 2 Narrative: General: Alert oriented x3, patient seen laying in bed appearing comfortable at this time. No focal neurological deficits. HEENT: Normocephalic, atraumatic, EOMI, breathing comfortably on room air. Cardio: Regular rate rhythm, normal S1-S2 Respiratory: Good bilateral air entry, no wheezes no rhonchi appreciated GI: Abdomen soft, nontender, nondistended, bowel sounds + Extremities: no edema, no cyanosis Data 06/02/24 19:20 06/02/24 19:20 A&P Assessment and plan (1) Transient ischemic attack: Plan #TIA #hX of macular degeneration ? Check cholesterol panel, TSH, hemoglobin A1c ? CT head negative for bleed ? Allow for permissive hypertension ? Start aspirin 81, Plavix 75 mg(21 days), atorvastatin 80 - Check echo ? Placed on telemetry. If no evidence of atrial fibrillation patient will require an event monitor at discharge ? Check MRI brain without contrast ? Confirm home medications. ? Neurochecks every 2 hours ? Admit to observation in hospital. - Hold home atenolol Full code DVT prophylaxis: Heparin SQ twice daily Attestations 2 Medical Necessity Statement*: Observation admission for TIA. Expect discharge prior to 48 hours. Diagnoses Transient ischemic attack G45.9
--- NOTE | 2024-06-02 21:25 | USCV_ITS ---
Parisa Krishnan Age: 74 Gender: F : 1950 Exam Date: 06/02/2024 23:54 Ordering Phys: Adelita Rivas MD Technologist: ZIA Exam Location: [facility] Indication: TIA, LEFT amaurosus fugax, ataxia. head CT WNL, CTA no hemodynamically significant stenoses. BP: 177 / 71 HR: 71 Rhythm: Sinus Technical Quality: Adequate MEASUREMENTS (Male / Female) Normal Values 2D ECHO LV Diastolic Diameter PLAX 4.1 cm 4.2 - 5.9 / 3.9 - 5.3 cm IVS Diastolic Thickness 1.3 cm 0.6 - 1.0 / 0.6 - 0.9 cm IVS Systolic Thickness 1.6 cm LVPW Diastolic Thickness 1.3 cm 0.6 - 1.0 / 0.6 - 0.9 cm LVPW Systolic Thickness 1.5 cm LVOT Diameter 2.1 cm LV Ejection Fraction 2D Teich 77.0 % LV Ejection Fraction MOD 2C 68.6 % LV Ejection Fraction 2C AL 68.0 % LA Diameter 5.4 cm Aorta at Sinotubular Diameter 2.5 cm IVC Diameter 1.5 cm M-MODE LA Ao Ratio MM 1.7 AV Cusp Separation MM 0.8 cm DOPPLER AV Peak Velocity 272.0 cm/s LVOT Peak Velocity 79.0 cm/s AV Area Cont Eq vti 1.0 cm squared AV Area Cont Eq pk 1.0 cm squared MV Peak Velocity 140.0 cm/s MV Area PHT 3.3 cm squared Mitral E to A Ratio 2.5 TV Peak Velocity 315.3 cm/s TR Peak Velocity 320.0 cm/s TR Peak Gradient 41.0 mmHg TV Peak E Velocity 41.0 cm/s Right Atrial Pressure 10.0 mmHg Pulmonary Artery Systolic Pressu 51.0 mmHg PV Peak Velocity 85.0 cm/s FINDINGS Left Ventricle Left ventricle is normal in size. LV systolic function is normal with EF of 60 to 65%. No regional wall motion abnormalities are seen. Right Ventricle Normal in size and function Right Atrium Normal in size Left Atrium Dilated Mitral Valve Mild mitral annular calcification. Trace mitral regurgitation. Aortic Valve Aortic valve is thickened. Moderate aortic stenosis with aortic valve area 1.02 cm with a mean gradient of 15 mmHg. Tricuspid Valve Mild tircuspid regurgitation. RVSP is 50-55mmHg. This is consistent with moderate pulmonary hypertension. Pulmonic Valve Not well visualized Pericardium Normal Aorta Normal in size IVC Appears to be normal CONCLUSIONS LV systolic function is normal with EF of 60-65% Left atrial dilation Trace mitral regurgitation Moderate aortic stenosis. Mild tricuspid regurgitation. Moderate pulmonary hypertension No comparison studies are available. Viktor Aguiar MD (Electronically Signed) Final Date: 03 June 2024 18:05 S
[2024-06-02] MEDS: sodium chloride 0.9% 1,000 ML 75 ML IV (21:54)
[2024-06-02] MEDS: heparin 5,000 unit/mL INJ 1 mL 5000 UNIT SUBCUT (21:55)
[2024-06-02 23:09] LABS: Chol HDL Ratio 4.17 mg/dL (0.0-4.40); Cholesterol 225 mg/dL (0-200); HDL Cholesterol 54 mg/dL (60-100); LDL Cholesterol Calculated 119 mg/dL (50-129); Triglycerides 262 mg/dL (0-150); VLDL Cholestrol Calculation 52 mg/dL (0-30)
[2024-06-02 23:13] LABS: Estmated Average Glucose 100; Hemoglobin A1C 5.1 % (4.0-6.0)
[2024-06-02 23:27] LABS: Thyroid Stimulating Hormone 1.33 uIU/mL (0.27-4.20)
[2024-06-03] VITALS (11 sets, daily range): BP systolic 122–158; BP diastolic 68–78; PULSE 66–92; RESP 14–18; TEMP 36.6–37.1; O2SAT 94–99
[2024-06-03 01:00] LABS: Vitamin B12 1517 pg/mL (232-1245)
[2024-06-03 03:05] LABS: Basophils # 0.1 10^3/uL (0.0-0.1); Basophils % 0.7 %; Eosinophils # 0.1 10^3/uL (0.0-0.8); Eosinophils % 1.2 %; Hematocrit 42.3 % (36-47); Lymphocytes # 3.5 10^3/uL (0.8-4.8); Lymphocytes % 35.4 %; Mean Corpuscular HGB Conc 32.4 g/dL (30-55); Mean Corpuscular Hemoglobin 29.5 pg (27-33); Mean Platelet Volume 11.1 fL (7.4-10.4); Monocytes # 0.6 10^3/uL (0.2-0.9); Monocytes % 6.5 %; Neutrophils # 5.53 10^3/uL (1.8-7.7); Nucleated Red Blood Cells % 0 %; Platelet Count 279 10^3/cmm (157-399); Red Blood Count 4.65 10^6/uL (3.85-5.65); Red Cell Distribution Width 13.2 % (12.1-15.1); White Blood Count 9.87 10^3/uL (3.29-11.43)
[2024-06-03 03:23] LABS: Anion Gap 15.4 (5-19); Blood Urea Nitrogen 15 mg/dL (8-23); Carbon Dioxide 25 mmol/L (22-29); Chloride 100 mmol/L (98-107); Creatinine Clr Calc Pharmacy 59.1415; Glucose 105 mg/dL (65-115); Magnesium 1.9 mg/dL (1.7-2.3); Osmolality Calculated 285 mOsm/kg (285-295); Potassium 3.4 mmol/L (3.5-5.1); Sodium 137 mmol/L (136-145)
[2024-06-03] MEDS: heparin 5,000 unit/mL INJ 1 mL 5000 UNIT SUBCUT (07:43)
[2024-06-03] MEDS: clopidogrel 75 mg Tablet PO (07:44)
[2024-06-03] MEDS: aspirin 81 mg EC Tablet PO (07:44)
--- NOTE | 2024-06-03 09:43 | PC.CHAP ---
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 [] Patient/Family/Request visit [] Outpatient visit [] Follow-up visit [] Physician referral [] Code/Alert [x] Routine visit [] Staff referral [] Actively dying [] Patient sleeping [x] Family support [] [] Out of room [] Palliative care [] [] Receiving care in room [] Pre-surgical visit [] Trauma [] Long length of stay [] ICU visit [] Other: Relational/Emotional Strength [x] Patient feels connected with others/family/visitors/staff [] Distress [] Loneliness/isolation [] Abandonment Spirituality of Patient [x] Person of [place] [] Attends Mormon of their [place] [x] Believes in Prayer [] Reads Bible or Congregation materials [] There are Spiritual issues to be addressed 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 [x] Prayer [x] Active listening [] Non-anxious presence [x] Spiritual/emotional support [] Crisis/trauma care [] Spiritual counseling [] Bereavement support [] Provided bereavement packet [] Provided Bible/devotional materials [] Provided toy/stuffed animal, coloring book to patient or family member [] Provided Communion [] Anointing/[place] [] Salvation [x] Completed spiritual assessment [] Other: Impact on Illness or Injury [] Angry [] Fearful [] Anxious [] Often cries [] Exhaustion [] Unable to work [] Unable to attend cheondoism [] Unable to walk/stand [] Unable to read [] Unable to drive [] Unable to eat/drink [] Unable to sleep [] Unable to be with family [] Patient intubated [] Other: Summary Time spent with patient 5 min
--- NOTE | 2024-06-03 10:48 | MR_ITS ---
WS: [id number] MRI HEAD WITHOUT CONTRAST TECHNIQUE: Sagittal T1, T2 axial, T2 axial FLAIR, axial and coronal T1 images, axial susceptibility w eighted imaging, axial diffusion weighted images, and coronal T2 images were obtained. CLINICAL INFORMATION: cva COMPARISON: CTA 06/02/2024 FINDINGS: Restricted diffusion within the LEFT parasagittal occipital and posterior temporal lobes extending an teriorly into the parahippocampal gyrus compatible with acute ischemia. Mild associated edema with mi ld partial effacement of the LEFT occipital horn. No hydrocephalus. A few tiny foci of hemosiderin on susceptibility weighted images compatible with a tiny amount of petechial hemorrhage. No hematoma. Mild small vessel changes. Moderate parenchymal volume loss. Normal posterior fossa. Normal vascular flow voids at the skull base. No extra-axial fluid collections. Paranasal sinuses are well aerated. N ormal posterior nasopharynx. Mastoid air cells are well aerated. Normal optic chiasm and pituitary infundibulum. Moderate symmetric atrophy temporal lobes and hippoca mpal formations. MR/MR head wo con* [id number] IMPRESSION: 1. Acute ischemia in the LEFT DIGITAL COMPUTER SYSTEMS ANALYST territory involving the LEFT posterior tempo ral and parasagittal occipital lobes extending anteriorly into the parahippocam pal gyrus. Area of ischemia measures approximately 4.0 x 1.8 cm. 2. Associated edema in the area of ischemia. Mild associated mass effect on th e LEFT occipital horn. No hydrocephalus. No midline shift. 3. A few tiny foci of hemosiderin within the area of ischemia compatible with a small amount of petechial hemorrhage. No intraparenchymal hematoma. Notified Aiden Rodriguez MD at 06/03/2024 1:37 PM.
--- NOTE | 2024-06-03 11:59 | MR_ITS ---
WS: [id number] MRA HEAD TECHNIQUE: Axial 3-D TOF images obtained with axial images and axial, sagittal, and coronal 2-D refor matted images. CLINICAL INFORMATION: posterio cirulatin stroke COMPARISON: None. FINDINGS: Tiny 3 mm LEFT clinoid ICA aneurysm appears stable and better seen on the CTA. Distal vertebral arteries are patent. Basilar artery is patent. Normal vascularity to the RIGHT LOOM OPERATOR t erritory. LEFT proximal LOOM OPERATOR is patent. Mid to distal LEFT LOOM OPERATOR vessels are poorly opacified. Both ICAs are patent at the skull base. Normal vascularity to the DALILA and MCA territories bilaterally . Mild intracranial atheromatous disease. MR/MR angio head wo con [id number] IMPRESSION: 1. 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 Decreased flow in the mid to distal LEFT LOOM OPERATOR territory. This corresponds to the area of ischemia seen on the concurrent MRI 3. Mild intracranial atheromatous disease. 4. Otherwise unremarkable intracranial MRA
--- NOTE | 2024-06-03 14:27 | P.PN_ITS ---
Subjective 2 Subjective: Patient was seen this morning, she is alert oriented x 4, follows all commands, she tells me that she has a retinal degeneration, in her right eye, she can see shadows, yesterday, she was unsteady on her feet, at bedside tells me that she had intermittent slurring of words, and she noticed that her right visual field out of the left eye was gone, since then that visual field has returned she feels, she does report unsteadiness on her feet, no falls, she has been up to the bathroom, up and out to the hallways without any significant lightheadedness or dizziness, no slurring of her words, on examination she is alert oriented x 4, following all commands no slurring of words does report intermittent word finding difficulty, I do not see any currently, no focal weakness, on visual field testing this is very difficult as she can only see shadows out of her right eye, but normal left eye visual field examination, she does not have any significant visual field cut or loss, on my examination, pupils are equal round reactive to light, no saccadic eye movements, we discussed the possibility of TIA versus CVA, plan is to order MRI/MRA, have PT OT speech therapy work with her, and possible monitoring here in the hospital based upon test results, she is agreeable, at bedside MRI/MRA shows 1. Acute ischemia in the LEFT MACHINE FANCY STITCHER nasreen tory involving the LEFT posterior temporal and parasagittal occipital lobes extending anteriorly into the parahippocampal gyrus. Area of ischemia measures approximately 4.0 x 1.8 cm. 2. Associated edema in the area of isch emia. Mild associated mass effect on the LEFT occipital horn. No hydrocephalus. No midline shift. 3. A few tiny foci of hemosiderin withi n the area of ischemia compatible with a small amount of petechial hemorrhage. No intraparenchymal hematoma. 1. 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 Decreased flow in the mid to distal LEFT MACHINE FANCY STITCHER territory. This corresponds to the area of ischemia seen on the concurrent MRI 3. Mild intracranial atheromatous disea se. 4. Otherwise unremarkable intracranial MRA -Spoke to Dr. Barber, about results -I went back up to see patient, she is a ctually ambulating with physical therapy, and I told her the news that she has evidence of acute ischemia in the left MACHINE FANCY STITCHER territory, involving the left posterior temporal and parasagittal occipital lobes, with associated edema, she denies any current headache, no blurry vision, no nausea, no vomiting, she is smiling she is happy she is surprised about her MRI findings, given that she feels that her balance is about the same, no significant visual field loss ? We discussed monitoring her in the hospital given her MRI findings evidence of acute stroke, allowing for permissive hypertension, continuing anticoagulant therapy, monitoring her closely, she voiced understanding, all questions answered, agreed to proceed Vitals/I&O/Wt Last Vital Signs Temp 97.8 F 06/03/24 11:56 Pulse 76 06/03/24 11:56 Resp 14 06/03/24 11:56 BP 138/75 06/03/24 11:56 Pulse Ox 98 06/03/24 11:56 O2 Del Method Room Air 06/03/24 11:56 06/02/24 06/03/24 06/03/24 22:59 06:59 14:59 Intake Total 200 / 200 1120 / 1120 Balance 200 / 200 1120 / 1120 Weight last 48 hrs Weight 81.788 kg Weight 76.657 kg Weight 76.657 kg Weight 76.657 kg Physical Exam 2 Const: COMMON NORMALS: no acute distress and patient oriented x3 Resp: COMMON NORMALS: normal respiratory effort, No retractions, No use of accessory muscles and clear to auscultation bilaterally AUSCULTATION: clear to auscultation bilaterally Cardio: COMMON NORMALS: regular rate, regular rhythm, S1 normal heart sound present and S2 normal heart sound present RATE: regular rate RHYTHM: r egular rhythm HEART SOUNDS: S1 normal heart sound present and S2 normal heart sound present GI: COMMON NORMALS: Normal to inspection, nondistended, normoactive bowel sounds present and non-tender Extremity: COMMON NORMALS: no pedal edema Neuro: COMMON NORMALS: patient oriented x3, CN's II-XII intact bilaterally, moves all extremities and no focal motor deficits OTHER: Dmoqqo-fz-tisl abnormally bilaterally, she is unsteady on her feet, Psych: COMMON NORMALS: mental status grossly normal Data 06/03/24 02:42 06/03/24 02:42 A&P Assessment and plan (1) Acute cerebrovascular accident (CVA) due to occlusion of left posterior cerebral artery: (2) Brain aneurysm: Plan Acute CVA due to left posterior cerebral artery occlusion MRI HEAD MR/MR head wo con* [id number] IMPRESSION: 1. Acute ischemia in the LEFT MACHINE FANCY STITCHER territory involving the LEFT posterior temporal and parasagittal occipital lobes extending anteriorly into the parahippocampal gyrus. Area of ischemia measures approximately 4.0 x 1.8 cm. 2. Associated edema in the area of ischemia. Mild associated mass effect on the LEFT occipital horn. No hydrocephalus. No midline shift. 3. A few tiny foci of hemosiderin within the area of ischemia compatible with a small amount of petechial hemorrhage. No intraparenchymal hematoma. MRA head and neck MR/MR angio head wo con [id number] IMPRESSION: 1. 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 Decreased flow in the mid to distal LEFT MACHINE FANCY STITCHER territory. This corresponds to the area of ischemia seen on the concurrent MRI 3. Mild intracranial atheromatous disease. 4. Otherwise unremarkable intracranial MRA -Plan ? Allow for permissive hypertension ? Neurochecks ? Denies stroke scale ? Aspiration precautions ? Cardiac echo ? Telemetry monitoring ?Continue aspirin ? Continue Plavix ? IV fluids ? Continue statin -PT OT, speech therapy eval ? For her aneurysm she will need to follow-up with neurosurgery as outpatient ? Full code ? Lovenox for DVT prophylaxis currently on hold as there is concerns for associated edema in the area of ischemia, will continue SCDs for now -Rocephin for UTI Patient was seen this morning, she is alert oriented x 4, follows all commands, she tells me that she has a retinal degeneration, in her right eye, she can see shadows, yesterday, she was unsteady on her feet, at bedside tells me that she had intermittent slurring of words, and she noticed that her right visual field out of the left eye was gone, since then that visual field has returned she feels, she does report unsteadiness on her feet, no falls, she has been up to the bathroom, up and out to the hallways without any significant lightheadedness or dizziness, no slurring of her words, on examination she is alert oriented x 4, following all commands no slurring of words does report intermittent word finding difficulty, I do not see any currently, no focal weakness, on visual field testing this is very difficult as she can only see shadows out of her right eye, but normal left eye visual field examination, she does not have any significant visual field cut or loss, on my examination, pupils are equal round reactive to light, no saccadic eye movements, we discussed the possibility of TIA versus CVA, plan is to order MRI/MRA, have PT OT speech therapy work with her, and possible monitoring here in the hospital based upon test results, she is agreeable, at bedside MRI/MRA shows 1. Acute ischemia in the LEFT MACHINE FANCY STITCHER territory involving the LEFT posterior temporal and parasagittal occipital lobes extending anteriorly into the parahippocampal gyrus. Area of ischemia measures approximately 4.0 x 1.8 cm. 2. Associated edema in the area of ischemia. Mild associated mass effect on the LEFT occipital horn. No hydrocephalus. No midline shift. 3. A few tiny foci of hemosiderin within the area of ischemia compatible with a small amount of petechial hemorrhage. No intraparenchymal hematoma. 1. 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 Decreased flow in the mid to distal LEFT MACHINE FANCY STITCHER territory. This corresponds to the area of ischemia seen on the concurrent MRI 3. Mild intracranial atheromatous disease. 4. Otherwise unremarkable intracranial MRA -Spoke to Dr. Barber, about results -I went back up to see patient, she is actually ambulating with physical therapy, and I told her the news that she has evidence of acute ischemia in the left MACHINE FANCY STITCHER territory, involving the left posterior temporal and parasagittal occipital lobes, with associated edema, she denies any current headache, no blurry vision, no nausea, no vomiting, she is smiling she is happy she is surprised about her MRI findings, given that she feels that her balance is about the same, no significant visual field loss ? We discussed monitoring her in the hospital given her MRI findings evidence of acute stroke, allowing for permissive hypertension, continuing anticoagulant therapy, monitoring her closely, she voiced understanding, all questions answered, agreed to proceed Attestations 2 Medical Necessity Statement*: Patient requires hospitalization, inpatient, greater than 2 midnights, for posterior circulation stroke, posterior cerebral artery occlusion Diagnoses Acute cerebrovascular accident (CVA) due to occlusion of left posterior cerebral artery I63.532 Brain aneurysm I67.1
[2024-06-03] MEDS: sodium chloride 0.9% 1,000 ML 75 ML IV (15:25)
[2024-06-03] MEDS: cefTRIAXone 1,000 mg SDV 1000 MG IVP (15:28)
[2024-06-03] MEDS: water for injection-sterile 10 ML (15:35)
[2024-06-03] MEDS: atorvastatin 40 mg Tablet 80 MG PO (20:09)
[2024-06-04] VITALS (30 sets, daily range): BP systolic 100–149; BP diastolic 71–84; PULSE 78–142; RESP 17–18; TEMP 36.8–37.1; O2SAT 90–100
--- NOTE | 2024-06-04 03:03 | ECG_ITS ---
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 Measurements Intervals [place] Rate: 135 P: 0 NM: 0 QRS: 20 QRSD: 72 T: -34 QT: 243 QTc: 365 Interpretive Statements ATRIAL FIBRILLATION WITH RAPID VENTRICULAR RESPONSE ST DEVIATION AND MODERATE T-WAVE ABNORMALITY, CONSIDER ANTERIOR ISCHEMIA [-0.1+ mV T-WAVE IN V3/V4] Compared to ECG 06/02/2024 19:00:25 T-wave abnormality now present Possible ischemia now present Sinus rhythm no longer present ST (T wave) deviation no longer present Electronically Signed On 06-05-2024 19:22:31 CDT by Viktor Aguiar M.D. [email or web address].[employer]/store/[id number]
[2024-06-04] MEDS: dilTIAZem 5 mg/mL SDV 5 mL 10 MG IVP (03:11)
[2024-06-04] MEDS: metoprolol tartrate 25 mg Tablet PO ×2 (04:03→08:41)
[2024-06-04] MEDS: sodium chloride 0.9% 1,000 ML 75 ML IV (04:03)
[2024-06-04] MEDS: dilTIAZem 5 mg/mL SDV 5 mL IVP (04:18)
[2024-06-04] MEDS: dilTIAZem 100 MG in sodium chloride 0.9% (add-van) 100 ML IV (04:27)
--- NOTE | 2024-06-04 05:30 | PC.NURSE ---
At approximately 0300 pt got up to go to the bathroom and became tachycardia 190-200's. Pt assisted back to bed and EKG obtained which showed A-fib w/RVR with a rate of 135. Dr. Rivas notified of the change in the pts condition. NO received and noted for Cardizem 10mg IVP and start Cardizem gtt w/fixed rate @5ml/hr. Updated Dr. Rivas of pt v/s and HR @ approximately 0330 d/c Cardizem gtt, move pt closer to nurses station, b/p monitoring q30min, Metoprolol 25mg BID 1rst dose now, put pt on zoll for monitoring. Dr. Rivas called back and wanted v/s q15m. At approximately 0410 Dr. Rivas update on pt status w/new orders received and noted for Cardizem 5mg IVP now, start Cardizem 5mg/hr, do not titrate. At approximately 0510 Dr. Rivas updated on pt status, instructed to continue to monitor.
[2024-06-04 05:55] LABS: Basophils # 0.1 10^3/uL (0.0-0.1); Basophils % 0.7 %; Eosinophils # 0.1 10^3/uL (0.0-0.8); Eosinophils % 1.4 %; Hematocrit 42.3 % (36-47); Lymphocytes # 2.4 10^3/uL (0.8-4.8); Lymphocytes % 31.5 %; Mean Corpuscular HGB Conc 31.9 g/dL (30-55); Mean Corpuscular Hemoglobin 29.2 pg (27-33); Mean Corpuscular Volume 91.6 fl (85-98); Mean Platelet Volume 11.1 fL (7.4-10.4); Monocytes # 0.6 10^3/uL (0.2-0.9); Monocytes % 7.6 %; Neutrophils % 58.5 %; Nucleated Red Blood Cells % 0 %; Platelet Count 256 10^3/cmm (157-399); Red Blood Count 4.62 10^6/uL (3.85-5.65); Red Cell Distribution Width 13.4 % (12.1-15.1); White Blood Count 7.68 10^3/uL (3.29-11.43)
[2024-06-04 06:14] LABS: Anion Gap 12.9 (5-19); Blood Urea Nitrogen 11 mg/dL (8-23); Calcium 9.1 mg/dL (8.5-10.5); Carbon Dioxide 25 mmol/L (22-29); Chloride 108 mmol/L (98-107); Creatinine Clr Calc Pharmacy 61.1404; Glucose 108 mg/dL (65-115); Osmolality Calculated 294 mOsm/kg (285-295); Potassium 3.9 mmol/L (3.5-5.1); Sodium 142 mmol/L (136-145)
--- NOTE | 2024-06-04 08:40 | ECG_ITS ---
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 Measurements Intervals [place] Rate: 99 P: 0 MI: 0 QRS: 5 QRSD: 73 T: -2 QT: 302 QTc: 387 Interpretive Statements ATRIAL FIBRILLATION NONSPECIFIC ST & T-WAVE ABNORMALITY Compared to ECG 06/04/2024 03:03:00 Possible ischemia no longer present T-wave abnormality still present Electronically Signed On 06-05-2024 19:22:10 CDT by Viktor Aguiar M.D. [email or web address] issaqu[facility] community hospitalMakad Energyclevel[facility].[employer]/store/OM/[id number]
[2024-06-04] MEDS: clopidogrel 75 mg Tablet PO (08:41)
[2024-06-04] MEDS: aspirin 81 mg EC Tablet PO (08:41)
[2024-06-04 09:52] LABS: Troponin(5th) Baseline 12 ng/L (0-10)
[2024-06-04] MEDS: dilTIAZem 30 mg Tablet PO ×3 (10:18→22:22)
--- NOTE | 2024-06-04 10:25 | ECG_ITS ---
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 Measurements Intervals [place] Rate: 82 P: 0 IA: 0 QRS: 5 QRSD: 70 T: 4 QT: 337 QTc: 395 Interpretive Statements ATRIAL FIBRILLATION MODERATE ST DEPRESSION [0.05+ mV ST DEPRESSION] Compared to ECG 06/04/2024 08:40:39 ST (T wave) deviation now present T-wave abnormality no longer present Electronically Signed On 06-05-2024 19:31:49 CDT by Viktor Aguiar M.D. [email or web address]/store/[id number]
[2024-06-04 11:55] LABS: Troponin 5 2HR 11.53 ng/L (0-10)
[2024-06-04 12:06] LABS: Troponin 5 2HR Delta -0.47 ABS# (0-10)
--- NOTE | 2024-06-04 13:05 | P.PN_ITS ---
Subjective 2 Subjective: - Patient was seen this morning -Overnight she developed A-fib with RVR, currently in A-fib heart rates are between 100-110, currently on Cardizem drip -She is alert oriented x 4, following al l commands no focal weakness no slurring of words, at times she does have unsteadiness on her feet no visual deficits -We discussed her atrial fibrillation, l ikely the stroke that she had is likely an embolic event from undiagnosed atrial fibrillation she does tell me that intermittently for the last few years she has had chest palpitations, especially when she exerts herself or she gets excited that is why she is on atenolol -Spoke to [facility], telene urology about the case, recommended continue medical management, decision on when to start full dose anticoagulant therapy for atrial fibrillation will be potentially be on Thursday 4 days after her initial stroke, -I had a family meeting with patient and her , discussed my discussion with neurology, discussed her paroxysmal atrial fibrillation, her stroke, continue inpatient monitoring, currently on a Cardizem drip avoiding significant hypotension, given her stroke, slowly titrating her heart rates, discussion about when to resume anticoagulation they voiced understanding, all questions answered, agreed to proceed ? Spoke to nursing staff spoke to patient, spoke to patient's , spoke to neurologist at [facility] Vitals/I&O/Wt Last Vital Signs Temp 98.2 F 06/04/24 11:32 Pulse 90 06/04/24 11:32 Resp 17 06/04/24 11:32 BP 127/74 06/04/24 11:32 Pulse Ox 100 06/04/24 11:32 O2 Del Method Nasal Cannula 06/04/24 11:32 O2 Flow Rate 2 06/04/24 07:18 06/03/24 06/04/24 06/04/24 22:59 06:59 14:59 Intake Total 250 / 1370 947.5 / 2317.5 680 / 680 Output Total 602 / 602 Balance 250 / 1370 947.5 / 2317.5 78 / 78 Weight last 48 hrs Weight 81.788 kg Weight 76.657 kg Weight 76.657 kg Weight 76.657 kg Physical Exam 2 Const: COMMON NORMALS: no acute distress and patient oriented x3 Eye: COMMON NORMALS: Equal, round and reactive pupils present and EOMs intact bilaterally PUPIL: Yes Equal, round and reactive pupils present Resp: COMMON NORMALS: normal respiratory effort, No retractions, No use of accessory muscles and clear to auscultation bilaterally AUSCULTATION: clear to auscultation bilaterally Cardio: COMMON NORMALS: S1 normal heart sound present and S2 normal heart sound present HEART SOUNDS: S1 normal heart sound present and S2 normal heart sound present GI: COMMON NORMALS: Normal to inspection, nondistended, normoactive bowel sounds present and non-tender Extremity: COMMON NORMALS: no pedal edema Neuro: COMMON NORMALS: patient oriented x3, CN's II-XII intact bilaterally, moves all extremities and no focal motor deficits Psych: COMMON NORMALS: mental status grossly normal Data 06/04/24 05:13 06/04/24 05:13 A&P Assessment and plan (1) Acute cerebrovascular accident (CVA) due to occlusion of left posterior cerebral artery: (2) Brain aneurysm: (3) Atrial fibrillation with RVR: Plan Acute CVA due to left posterior cerebral artery occlusion, concerns for embolic CVA given new onset A-fib with RVR MRI HEAD MR/MR head wo con* [id number] IMPRESSION: 1. Acute ischemia in the LEFT AMPHIBIAN CREWMEMBER territory involving the LEFT posterior temporal and parasagittal occipital lobes extending anteriorly into the parahippocampal gyrus. Area of ischemia measures approximately 4.0 x 1.8 cm. 2. Associated edema in the area of ischemia. Mild associated mass effect on the LEFT occipital horn. No hydrocephalus. No midline shift. 3. A few tiny foci of hemosiderin within the area of ischemia compatible with a small amount of petechial hemorrhage. No intraparenchymal hematoma. MRA head and neck MR/MR angio head wo con [id number] IMPRESSION: 1. 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 Decreased flow in the mid to distal LEFT AMPHIBIAN CREWMEMBER territory. This corresponds to the area of ischemia seen on the concurrent MRI 3. Mild intracranial atheromatous disease. 4. Otherwise unremarkable intracranial MRA Cardiac echo CONCLUSIONS LV systolic function is normal with EF of 60-65% Left atrial dilation Trace mitral regurgitation Moderate aortic stenosis. Mild tricuspid regurgitation. Moderate pulmonary hypertension No comparison studies are available. -Plan ? Allow for permissive hypertension ? Neurochecks ? NIH stroke scale ? Aspiration precautions ? Telemetry monitoring ?Continue aspirin ? IV fluids ? Continue statin -PT OT, speech therapy eval ? For her aneurysm she will need to follow-up with neurosurgery as outpatient -A-fib with RVR, currently on Cardizem drip, wean as tolerated, start p.o. Cardizem 30 every 6 hours # Start anticoagulation roughly 4 days after initial stroke, potentially Thursday ? Full code ? Lovenox for DVT prophylaxis , continue SCDs for now -Rocephin for UTI - Patient was seen this morning -Overnight she developed A-fib with RVR, currently in A-fib heart rates are between 100-110, currently on Cardizem drip -She is alert oriented x 4, following all commands no focal weakness no slurring of words, at times she does have unsteadiness on her feet no visual deficits -We discussed her atrial fibrillation, likely the stroke that she had is likely an embolic event from undiagnosed atrial fibrillation she does tell me that intermittently for the last few years she has had chest palpitations, especially when she exerts herself or she gets excited that is why she is on atenolol -Spoke to [facility], teleneurology about the case, recommended continue medical management, decision on when to start full dose anticoagulant therapy for atrial fibrillation will be potentially be on Thursday 4 days after her initial stroke, -I had a family meeting with patient and her , discussed my discussion with neurology, discussed her paroxysmal atrial fibrillation, her stroke, continue inpatient monitoring, currently on a Cardizem drip avoiding significant hypotension, given her stroke, slowly titrating her heart rates, discussion about when to resume anticoagulation they voiced understanding, all questions answered, agreed to proceed ? Spoke to nursing staff spoke to patient, spoke to patient's , spoke to neurologist at [facility] Attestations 2 Medical Necessity Statement*: Patient requires hospitalization for A-fib with RVR, currently on Cardizem drip, acute CVA, concerns for embolic CVA Diagnoses Acute cerebrovascular accident (CVA) due to occlusion of left posterior cerebral artery I63.532 Brain aneurysm I67.1 Atrial fibrillation with RVR I48.91
[2024-06-04] MEDS: water for injection-sterile 10 ML 999 ML (14:25)
[2024-06-04] MEDS: cefTRIAXone 1,000 mg SDV 1000 MG IVP (14:25)
--- NOTE | 2024-06-04 14:25 | ECG_ITS ---
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 Measurements Intervals [place] Rate: 84 P: 0 IL: 0 QRS: 6 QRSD: 69 T: -2 QT: 339 QTc: 401 Interpretive Statements ATRIAL FIBRILLATION NONSPECIFIC ST & T-WAVE ABNORMALITY Compared to ECG 06/04/2024 11:04:15 T-wave abnormality now present ST (T wave) deviation no longer present Electronically Signed On 06-05-2024 19:31:15 CDT by Viktor Aguiar M.D. [email or web address]/[id number]
[2024-06-04 15:37] LABS: Troponin 5 6HR 11.22 ng/L (0-10)
[2024-06-04 15:44] LABS: Troponin 5 6HR Delta -0.78 ng/L (0-12)
[2024-06-04] MEDS: enoxaparin 40 mg/0.4 mL Syringe SUBCUT (17:31)
[2024-06-04] MEDS: atorvastatin 40 mg Tablet 80 MG PO (20:23)
[2024-06-05] VITALS (53 sets, daily range): BP systolic 101–155; BP diastolic 60–95; PULSE 87–171; RESP 10–36; TEMP 36.3–37; O2SAT 90–99
[2024-06-05] MEDS: dilTIAZem 30 mg Tablet PO ×3 (03:23→08:58)
[2024-06-05 04:57] LABS: Basophils # 0.1 10^3/uL (0.0-0.1); Basophils % 0.7 %; Eosinophils # 0.2 10^3/uL (0.0-0.8); Eosinophils % 1.9 %; Hematocrit 40.7 % (36-47); Lymphocytes # 2.8 10^3/uL (0.8-4.8); Lymphocytes % 33.1 %; Mean Corpuscular HGB Conc 32.7 g/dL (30-55); Mean Corpuscular Hemoglobin 29.3 pg (27-33); Mean Corpuscular Volume 89.6 fl (85-98); Mean Platelet Volume 11.1 fL (7.4-10.4); Monocytes # 0.6 10^3/uL (0.2-0.9); Monocytes % 6.8 %; Neutrophils # 4.93 10^3/uL (1.8-7.7); Neutrophils % 57.3 %; Nucleated Red Blood Cells % 0 %; Platelet Count 265 10^3/cmm (157-399); Red Blood Count 4.54 10^6/uL (3.85-5.65); Red Cell Distribution Width 13.2 % (12.1-15.1); White Blood Count 8.59 10^3/uL (3.29-11.43)
[2024-06-05 05:20] LABS: Anion Gap 13.8 (5-19); Blood Urea Nitrogen 9 mg/dL (8-23); Carbon Dioxide 23 mmol/L (22-29); Chloride 107 mmol/L (98-107); Glucose 100 mg/dL (65-115); Osmolality Calculated 289 mOsm/kg (285-295); Potassium 3.8 mmol/L (3.5-5.1); Sodium 140 mmol/L (136-145)
[2024-06-05] MEDS: aspirin 81 mg EC Tablet PO (08:15)
--- NOTE | 2024-06-05 08:18 | PC.NURSE ---
gave patient her diltiazem approx one hour early due to a heart rate fuctuating between 140-160s at rest.
[2024-06-05] MEDS: dilTIAZem 100 MG in sodium chloride 0.9% (add-van) 100 ML 7.5 MG IV ×2 (13:37→20:03)
--- NOTE | 2024-06-05 13:38 | PC.NURSE ---
Patient received from [facility] via wheelchair at 1325. Cardizem gtt at 5mg/hr upon arrival. Heart rate 149, blood pressure 151/86
[2024-06-05] MEDS: dilTIAZem 30 mg Tablet 60 MG PO ×2 (13:44→20:14)
--- NOTE | 2024-06-05 13:45 | P.PN_ITS ---
Subjective 2 Subjective: - Patient was seen this morning, current ly heart rates in the 110s, atrial fibrillation, she denies any lightheadedness, dizziness, no nausea, no vomiting, Cardizem increased to 60 every 6h she is off Cardizem drip -Early in the morning around noon time, heart rates are in the 130s, as patient is on medical floors, I cannot titrate the Cardizem drip, some just cannot move her down to the ICU resume Cardizem drip that is titratable, get her heart rates under control, -Will consider beta-daja based upon h er blood pressure trend and heart rate trend when to avoid hypotension episode as she is still in the acute phase of her stroke Vitals/I&O/Wt Last Vital Signs Temp 97.5 F L 06/05/24 11:58 Pulse 110 H 06/05/24 11:58 Resp 18 06/05/24 11:58 BP 120/76 06/05/24 11:58 Pulse Ox 99 06/05/24 11:58 O2 Del Method Room Air 06/05/24 11:58 O2 Flow Rate 2 06/04/24 07:18 06/04/24 06/05/24 06/05/24 22:59 06:59 14:59 Intake Total 1480 / 2687.75 600 / 600 Balance 1480 / 2085.75 600 / 600 Weight last 48 hrs Weight 82.639 kg Physical Exam 2 Const: COMMON NORMALS: no acute distress and patient oriented x3 Resp: COMMON NORMALS: normal respiratory effort, No retractions, No use of accessory muscles and clear to auscultation bilaterally AUSCULTATION: clear to auscultation bilaterally Cardio: COMMON NORMALS: regular rate, regular rhythm, S1 normal heart sound present and S2 normal heart sound present RATE: regular rate RHYTHM: r egular rhythm HEART SOUNDS: S1 normal heart sound present and S2 normal heart sound present GI: COMMON NORMALS: Normal to inspection, nondistended, normoactive bowel sounds present and non-tender Extremity: COMMON NORMALS: no pedal edema Neuro: COMMON NORMALS: patient oriented x3, CN's II-XII intact bilaterally and moves all extremities Psych: COMMON NORMALS: mental status grossly normal Data 06/05/24 04:19 06/05/24 04:19 A&P Assessment and plan (1) Acute cerebrovascular accident (CVA) due to occlusion of left posterior cerebral artery: (2) Brain aneurysm: (3) Atrial fibrillation with RVR: Plan Acute CVA due to left posterior cerebral artery occlusion, concerns for embolic CVA given new onset A-fib with RVR MRI HEAD MR/MR head wo con* [id number] IMPRESSION: 1. 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 Area of ischemia measures approximately 4.0 x 1.8 cm. 2. Associated edema in the area of ischemia. Mild associated mass effect on the LEFT occipital horn. No hydrocephalus. No midline shift. 3. A few tiny foci of hemosiderin within the area of ischemia compatible with a small amount of petechial hemorrhage. No intraparenchymal hematoma. MRA head and neck MR/MR angio head wo con [id number] IMPRESSION: 1. 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 Decreased flow in the mid to distal LEFT CONSTRUCTION PROJECT ENGINEER territory. This corresponds to the area of ischemia seen on the concurrent MRI 3. Mild intracranial atheromatous disease. 4. Otherwise unremarkable intracranial MRA Cardiac echo CONCLUSIONS LV systolic function is normal with EF of 60-65% Left atrial dilation Trace mitral regurgitation Moderate aortic stenosis. Mild tricuspid regurgitation. Moderate pulmonary hypertension No comparison studies are available. -Plan ? Allow for permissive hypertension ? Neurochecks ? NIH stroke scale ? Aspiration precautions ? Telemetry monitoring ?Continue aspirin ? IV fluids ? Continue statin -PT OT, speech therapy eval ? For her aneurysm she will need to follow-up with neurosurgery as outpatient -A-fib with RVR, currently on Cardizem drip, wean as tolerated, start p.o. Cardizem 30 every 6 hours # Start anticoagulation roughly 4 days after initial stroke, potentially Thursday ? Full code ? Lovenox for DVT prophylaxis , continue SCDs for now -Rocephin for UTI - Patient was seen this morning, currently heart rates in the 110s, atrial fibrillation, she denies any lightheadedness, dizziness, no nausea, no vomiting, Cardizem increased to 60 every 6h she is off Cardizem drip -Early in the morning around noon time, heart rates are in the 130s, as patient is on medical floors, I cannot titrate the Cardizem drip, some just cannot move her down to the ICU resume Cardizem drip that is titratable, get her heart rates under control, -Will consider beta-daja based upon her blood pressure trend and heart rate trend when to avoid hypotension episode as she is still in the acute phase of her stroke -Moved out to ICU, started on Cardizem drip, for A-fib with RVR, avoiding hypotension, over aggressive management of heart rate given patient's recent CVA Attestations 2 Medical Necessity Statement*: Patient requires hospitalization for A-fib with RVR, acute CVA Diagnoses Acute cerebrovascular accident (CVA) due to occlusion of left posterior cerebral artery I63.532 Brain aneurysm I67.1 Atrial fibrillation with RVR I48.91
[2024-06-05] MEDS: cefTRIAXone 1,000 mg SDV 1000 MG IVP (14:05)
[2024-06-05] MEDS: water for injection-sterile 10 ML 5 ML (14:05)
[2024-06-05] MEDS: enoxaparin 40 mg/0.4 mL Syringe SUBCUT (17:38)
[2024-06-05] MEDS: atorvastatin 40 mg Tablet 80 MG PO (20:14)
[2024-06-06] VITALS (48 sets, daily range): BP systolic 106–148; BP diastolic 48–86; PULSE 70–157; RESP 13–32; TEMP 36.7–37.6; O2SAT 79–99; BMI 31.5
[2024-06-06] MEDS: dilTIAZem 30 mg Tablet 60 MG PO ×4 (02:05→20:17)
[2024-06-06 04:55] LABS: Basophils # 0.1 10^3/uL (0.0-0.1); Basophils % 0.7 %; Eosinophils # 0.1 10^3/uL (0.0-0.8); Eosinophils % 1.3 %; Hematocrit 41.6 % (36-47); Lymphocytes # 2.9 10^3/uL (0.8-4.8); Lymphocytes % 28.3 %; Mean Corpuscular Hemoglobin 29.7 pg (27-33); Mean Corpuscular Volume 92.9 fl (85-98); Mean Platelet Volume 10.5 fL (7.4-10.4); Monocytes # 0.8 10^3/uL (0.2-0.9); Monocytes % 8.3 %; Neutrophils # 6.15 10^3/uL (1.8-7.7); Nucleated Red Blood Cells % 0 %; Platelet Count 265 10^3/cmm (157-399); Red Blood Count 4.48 10^6/uL (3.85-5.65); Red Cell Distribution Width 13.5 % (12.1-15.1); White Blood Count 10.08 10^3/uL (3.29-11.43)
[2024-06-06 05:15] LABS: Anion Gap 14.8 (5-19); Blood Urea Nitrogen 15 mg/dL (8-23); Calcium 8.9 mg/dL (8.5-10.5); Carbon Dioxide 21 mmol/L (22-29); Chloride 106 mmol/L (98-107); Glucose 107 mg/dL (65-115); Osmolality Calculated 287 mOsm/kg (285-295); Potassium 3.8 mmol/L (3.5-5.1); Sodium 138 mmol/L (136-145)
[2024-06-06] MEDS: aspirin 81 mg EC Tablet PO (08:10)
--- NOTE | 2024-06-06 08:13 | ECG_ITS ---
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 Measurements Intervals [place]attie Rate: 144 P: 0 NH: 0 QRS: 7 QRSD: 137 T: -60 QT: 240 QTc: 372 Interpretive Statements Atrial flutter with RVR INTRAVENTRICULAR CONDUCTION DELAY [130+ ms QRS DURATION] Compared to ECG 06/04/2024 14:25:41 Intraventricular conduction delay now present T-wave abnormality no longer present Electronically Signed On 06-06-2024 12:03:22 CDT by Viktor Aguiar M.D. [id number]
--- NOTE | 2024-06-06 08:26 | CTR_ITS ---
PROCEDURE INFORMATION: Exam: CT Head Without Contrast Exam date and time: 06/06/2024 9:16 AM Age: 74 years old Clinical indication: Altered mental status/memory loss; Additional info: AMS TECHNIQUE: Imaging protocol: Computed tomography of the head without contrast. Radiation optimization: All CT scans at this facility use at least one of these dose optimization techniques: automated exposure control; mA and/or kV adjustment per patient size (includes targeted exams where dose is matched to clinical indication); or iterative reconstruction. COMPARISON: MR head 06/03/[address] head 06/02/2024 RADIATION DOSE METRICS: Total DLP (mGy-cm): 1041.08 FINDINGS: Brain: Left occipital hypodensity representing known acute infarction corresponds to the size of abnormality on prior MRI is much more conspicuous in comparison with prior CT exam. A couple of linear foci of higher density isodense with normal miles matter within the infarcted territory (series 4, image 22, series 8, image 20) likely represent minimal hemorrhage documented on prior MRI. Cerebral ventricles: No hydrocephalus. The ventricles and sulci are prominent in size in keeping with brain atrophy. Paranasal sinuses: Visualized sinuses are unremarkable. No fluid levels. Mastoid air cells: No mastoid effusion. Bones: Unremarkable. No acute fracture. Soft tissues: Unremarkable. CT/CT head wo con* [id number] IMPRESSION: No new acute findings in comparison with 06/03/2024. Persistent acute infarction in the left occipital lobe with minor cortical hemorrhage documented on prior MRI.
[2024-06-06] MEDS: metoprolol tartrate 25 mg Tablet PO ×2 (08:39→20:17)
[2024-06-06] MEDS: dilTIAZem 100 MG in sodium chloride 0.9% (add-van) 100 ML IV (09:47)
--- NOTE | 2024-06-06 12:32 | PC.SOCIAL ---
IMM Updated. Updated pt on IMM. No questions voiced. Provided pt a copy. Initialed, dated, & timed a copy & placed in chart.
--- NOTE | 2024-06-06 13:18 | P.PN_ITS ---
Subjective 2 Subjective: Patient was seen this morning, multiple times, early in the morning, she is initially converted to normal sinus rhythm overnight, she is back into A-fib with RVR heart rates as high as 160s, placed back on the Cardizem drip, she is alert awake, following all commands, no fevers, no chills, nursing staff to report episodes of confusion during the night but to me she is alert oriented x 3, following all commands, no focal weakness no slurring of words Vitals/I&O/Wt Last Vital Signs Temp 99.0 F 06/06/24 04:00 Pulse 76 06/06/24 13:04 Resp 19 H 06/06/24 13:00 BP 128/75 06/06/24 13:00 Pulse Ox 90 06/06/24 12:30 O2 Del Method Room Air 06/06/24 06:00 O2 Flow Rate 2 06/04/24 07:18 06/05/24 06/06/24 06/06/24 22:59 06:59 14:59 Intake Total 58.25 / 658.25 60 / 718.25 400 / 400 Output Total 350 / 350 100 / 450 650 / 650 Balance -291.75 / 308.25 -40 / 268.25 -250 / -250 Weight last 48 hrs Weight 78.199 kg Weight 82.639 kg Physical Exam 2 Const: COMMON NORMALS: no acute distress and patient oriented x3 Resp: COMMON NORMALS: normal respiratory effort, No retractions, No use of accessory muscles and clear to auscultation bilaterally AUSCULTATION: clear to auscultation bilaterally Cardio: COMMON NORMALS: S1 normal heart sound present and S2 normal heart sound present RATE: tachycardic RHYTHM: abnormal rhythm HEART SOUNDS: S 1 normal heart sound present and S2 normal heart sound present GI: COMMON NORMALS: Normal to inspection, nondistended, normoactive bowel sounds present and non-tender Extremity: COMMON NORMALS: no pedal edema Neuro: COMMON NORMALS: patient oriented x3 Psych: COMMON NORMALS: mental status grossly normal Data 06/06/24 04:36 06/06/24 04:36 A&P Assessment and plan (1) Acute cerebrovascular accident (CVA) due to occlusion of left posterior cerebral artery: (2) Brain aneurysm: (3) Atrial fibrillation with RVR: Plan Acute CVA due to left posterior cerebral artery occlusion, concerns for embolic CVA given new onset A-fib with RVR MRI HEAD MR/MR head wo con* [id number] IMPRESSION: 1. 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 Area of ischemia measures approximately 4.0 x 1.8 cm. 2. Associated edema in the area of ischemia. Mild associated mass effect on the LEFT occipital horn. No hydrocephalus. No midline shift. 3. A few tiny foci of hemosiderin within the area of ischemia compatible with a small amount of petechial hemorrhage. No intraparenchymal hematoma. MRA head and neck MR/MR angio head wo con [id number] IMPRESSION: 1. 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 Decreased flow in the mid to distal LEFT RED MUD THICKENER OPERATOR territory. This corresponds to the area of ischemia seen on the concurrent MRI 3. Mild intracranial atheromatous disease. 4. Otherwise unremarkable intracranial MRA Cardiac echo CONCLUSIONS LV systolic function is normal with EF of 60-65% Left atrial dilation Trace mitral regurgitation Moderate aortic stenosis. Mild tricuspid regurgitation. Moderate pulmonary hypertension No comparison studies are available. -Plan ? Allow for permissive hypertension ? Neurochecks ? NIH stroke scale ? Aspiration precautions ? Telemetry monitoring ?Continue aspirin ? IV fluids ? Continue statin -PT OT, speech therapy eval ? For her aneurysm she will need to follow-up with neurosurgery as outpatient -A-fib with RVR, currently on Cardizem drip, wean as tolerated, start p.o. Cardizem 60every 6 hours, add metoprolol 25 twice daily # Start anticoagulation roughly 4 days after initial stroke, potentially Thursday ? Full code ? Lovenox for DVT prophylaxis , continue SCDs for now -Rocephin for UTI -Plan for today, A-fib with RVR, continue IV Cardizem, add on p.o. metoprolol repeat head CT due to concerns for confusion by nursing staff although for me she is alert oriented x 3, following all commands, no focal weakness, slurring words Attestations 2 Medical Necessity Statement*: Patient requires hospitalization for A-fib with RVR, new onset CVA, concern for embolic CVA Diagnoses Acute cerebrovascular accident (CVA) due to occlusion of left posterior cerebral artery I63.532 Brain aneurysm I67.1 Atrial fibrillation with RVR I48.91
[2024-06-06] MEDS: water for injection-sterile 10 ML 100 ML (14:41)
[2024-06-06] MEDS: cefTRIAXone 1,000 mg SDV 1000 MG IVP (14:41)
[2024-06-06] MEDS: enoxaparin 40 mg/0.4 mL Syringe SUBCUT (17:15)
[2024-06-06] MEDS: atorvastatin 40 mg Tablet 80 MG PO (20:16)
[2024-06-07] VITALS (26 sets, daily range): BP systolic 98–140; BP diastolic 44–86; PULSE 60–91; RESP 14–31; TEMP 36.6–36.9; O2SAT 91–100; BMI 31.4
--- NOTE | 2024-06-07 02:22 | PC.NURSE ---
Held 0200 Cardizem: Cardizem 60 mg PO due at 0200 not given due to current vital signs, HR 61, BP 119/44. Called Dr. Moreno and received verification to hold dose.
[2024-06-07 04:50] LABS: Basophils % 0.5 %; Eosinophils # 0.2 10^3/uL (0.0-0.8); Eosinophils % 2.5 %; Hematocrit 41.1 % (36-47); Lymphocytes # 2.5 10^3/uL (0.8-4.8); Mean Corpuscular HGB Conc 32.1 g/dL (30-55); Mean Corpuscular Hemoglobin 29.6 pg (27-33); Mean Corpuscular Volume 92.2 fl (85-98); Mean Platelet Volume 10.5 fL (7.4-10.4); Monocytes # 0.8 10^3/uL (0.2-0.9); Monocytes % 9.1 %; Neutrophils # 4.85 10^3/uL (1.8-7.7); Neutrophils % 57.8 %; Nucleated Red Blood Cells % 0 %; Platelet Count 268 10^3/cmm (157-399); Red Blood Count 4.46 10^6/uL (3.85-5.65); Red Cell Distribution Width 13.4 % (12.1-15.1); White Blood Count 8.38 10^3/uL (3.29-11.43)
[2024-06-07 05:25] LABS: Anion Gap 14.9 (5-19); Blood Urea Nitrogen 17 mg/dL (8-23); Calcium 9.2 mg/dL (8.5-10.5); Carbon Dioxide 25 mmol/L (22-29); Chloride 106 mmol/L (98-107); Creatinine Clr Calc Pharmacy 59.7422; Glucose 96 mg/dL (65-115); Osmolality Calculated 295 mOsm/kg (285-295); Potassium 3.9 mmol/L (3.5-5.1); Sodium 142 mmol/L (136-145)
[2024-06-07] MEDS: aspirin 81 mg EC Tablet PO (08:40)
[2024-06-07] MEDS: dilTIAZem 30 mg Tablet 60 MG PO (08:40)
[2024-06-07] MEDS: apixaban 5 mg Tablet PO (08:42)
[2024-06-07] MEDS: metoprolol tartrate 25 mg Tablet PO (09:21)
--- NOTE | 2024-06-07 11:21 | PM.DCS ---
Discharge Providers Date of Admission: 06/03/24 14:45 Date of Discharge: June 07, 2024 Attending Provider at Admission: Adelita Rivas MD Attending Provider at Discharge: Aiden Rodriguez MD Primary Care Provider: Bjorn Navarro MD Diagnoses at Discharge Discharge Diagnosis (1) Acute cerebrovascular accident (CVA) due to occlusion of left posterior cerebral artery: Status: Acute (2) Brain aneurysm: Status: Acute (3) Atrial fibrillation with RVR: Status: Acute Reason for Visit Reason for Visit: left eye is losing vision loss of balance Hospital Course Hospital Course andace Eulogio is a 74 year old female With no significant past medical history presented to the hospital today with strokelike symptoms. Few hours prior to arrival she developed sudden onset loss on the right side of her left eye and she has reduced vision from the right eye already 2/2 to macular degeneration therefore does not know there was an issue there. She felt she could not walk straight and was off balance. She had to hold onto things to get around. Denies any numbness or weakness. By the time she admitted to the ER symptoms started resolving and resolved later on. On physical exam her visual edgar and left eye were intact at the time. Gait was normal. All symptoms resolved in ER. CT head was checked, CT a head and neck done with no significant thrombosis or stenosis. Moderate to severe level foraminal stenosis of cervical spine present. 15 mm right-sided thyroid nodule present. No large vessel occlusion or acute thrombosis in the head. Labs unremarkable. UA shows trace leukocyte esterase, calcium oxalate crystals, 1+ bacteri Patient was admitted to [facility], initially there was concerns for TIA, however due to persistent neurologic symptoms, she underwent further testing including MRI which showed acute ischemia in the left CRITICAL CARE SPECIALIST territory involving the left posterior temporal and parasagittal occipital lobes extending anteriorly into the parahippocampal gyrus, she was initially medically managed, she will developed A-fib with RVR, raising the suspicion that this stroke was likely embolic phenomenon Acute CVA due to left posterior cerebral artery occlusion, concerns for embolic CVA given new onset A-fib with RVR MRI HEAD MR/MR head wo con* [id number] IMPRESSION: 1. Acute ischemia in the LEFT CRITICAL CARE SPECIALIST territory involving the LEFT posterior temporal and parasagittal occipital lobes extending anteriorly into the parahippocampal gyrus. Area of ischemia measures approximately 4.0 x 1.8 cm. 2. Associated edema in the area of ischemia. Mild associated mass effect on the LEFT occipital horn. No hydrocephalus. No midline shift. 3. A few tiny foci of hemosiderin within the area of ischemia compatible with a small amount of petechial hemorrhage. No intraparenchymal hematoma. MRA head and neck MR/MR angio head wo con [id number] IMPRESSION: 1. 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 Decreased flow in the mid to distal LEFT CRITICAL CARE SPECIALIST territory. This corresponds to the area of ischemia seen on the concurrent MRI 3. Mild intracranial atheromatous disease. 4. Otherwise unremarkable intracranial MRA Cardiac echo CONCLUSIONS LV systolic function is normal with EF of 60-65% Left atrial dilation Trace mitral regurgitation Moderate aortic stenosis. Mild tricuspid regurgitation. Moderate pulmonary hypertension No comparison studies are available. -Neurology was consulted at [facility] recommended medical management, with anticoagulant therapy for 4 days after stroke event -She was monitored as inpatient, no significant remaining neurologic deficits, allow for permissive hypertension then required A-fib rate control, overall clinically improved, will be discharged on aspirin, statin, Eliquis 5 mg twice daily with close follow-up with primary care and neurology as outpatient -Patient was advised that Eliquis is a strong blood thinner if she develops any bloody or black stools, headache, blurry vision, to immediately go to the emergency room as this could be an indicator of life-threatening bleeding -I had extensive discussion with her about Eliquis, and hemorrhagic conversion with her stroke, after discussion with neurology, it was deemed reasonable to start it 4 days after, I have repeated a head CT 4 days after which did not show any evidence of hemorrhage, or cerebral edema, I have waited about 5 days after her stroke to start her Eliquis, she tolerated it well ? However if she were to have any headache, blurry vision, or new neurologic symptomatology this could be indicated of life-threatening bleeding and she should go to the emergency room immediately -Follow-up with neurology as outpatient -If any recurrent strokelike symptoms call 911 In terms of atrial fibrillation, she had episodes of A-fib with RVR that were initially difficult to control given her stroke, initially managed with Cardizem drip, however continued to have episodes of A-fib with RVR, moved to ICU, she converted to sinus rhythm twice, and 06/06/2024 she went back into A-fib and then converted to normal sinus rhythm after she received metoprolol. She will be discharged on Cardizem 120 twice daily with metoprolol 25 mg twice daily, Eliquis as above, with close follow-up with primary care and cardiology as outpatient. She was also found to have a 3 mm left clinoid ICA aneurysm, follow-up with neurosurgery as outpatient she was also found to have a thyroid nodule, follow-up with Dr. Elmore as outpatient Patient did have episodes of visual hallucination during her hospitalization, repeat head CT as above, no acute findings, she remains is alert oriented x 4, does report that she has had a evidence of early onset dementia, which she has been noting for the last few months, she at times is forgetful, she does have a UTI and when I discharged her on antibiotics, she should follow-up with Dr. Steen as outpatient, patient and family was advised if she were to have any worsening episodes of confusion or hallucinations to immediately come back to the emergency room Physical Exam Const: COMMON NORMALS: no acute distress and patient oriented x3 Resp: COMMON NORMALS: normal respiratory effort, No retractions, No use of accessory muscles and clear to auscultation bilaterally AUSCULTATION: clear to auscultation bilaterally Cardio: COMMON NORMALS: regular rate, regular rhythm, S1 normal heart sound present and S2 normal heart sound present RATE: regular rate RHYTHM: regular rhythm HEART SOUNDS: S1 normal heart sound present and S2 normal heart sound present GI: COMMON NORMALS: Normal to inspection, nondistended, normoactive bowel sounds present Extremity: COMMON NORMALS: no calf tenderness and no pedal edema Neuro: COMMON NORMALS: patient oriented x3, CN's II-XII intact bilaterally, moves all extremities and no focal motor deficits Psych: COMMON NORMALS: mental status grossly normal Discharge Data Studies Completed and Pending Completed Studies During Hospitalization Category Date Time Status CT angio headneck* [id number] Stat Cat Scan 06/02/24 18:[address] head thrombolytic [id number] Stat Cat Scan 06/02/24 18:[address] head wo con* [id number] Stat Cat Scan 06/06/24 08:26 Completed MR head wo con* [id number] Stat MRI 06/03/24 10:48 Completed MRA head [MR angio head wo con [id number]] Stat MRI 06/03/24 11:59 Completed US echo complete [CV. echo complete* [id number]] Routine Ultrasound 06/02/24 21:25 Completed Pending at discharge Category Date Time Status Basic Metabolic Panel AM LABS Lab 06/08/24 04:00 Ordered Basic Metabolic Panel AM LABS Lab 06/09/24 04:00 Ordered Complete Blood Count w/Auto AM LABS Lab 06/08/24 04:00 Ordered Complete Blood Count w/Auto AM LABS Lab 06/09/24 04:00 Ordered Radiology Impressions Head/Neck CTA 06/02/24 18:35 IMPRESSION: 1. No evidence of large vessel occlusion or acute thrombosis in the head. 2. 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 IMPRESSION: 1. No evidence of acute thrombosis or hemodynamically significant stenosis in the neck. 2. Moderate-severe multilevel foraminal stenosis of the cervical spine. Consider correlation with follow-up outpatient MRI to evaluate for neural impingement. 3. 15 mm right-sided thyroid nodule. Correlation with thyroid function tests and follow-up outpatient thyroid ultrasound is recommended. REFERENCES: NASCET CRITERIA. The degree of stenosis in the cervical segment of the internal carotid artery is based on NASCET criteria. Normal is no stenosis. Mild is less than 50% stenosis. Moderate is 50-69% stenosis. Severe is 70% to 99% stenosis. Total occlusion is no detectable patent lumen. Head MRI 06/03/24 10:48 IMPRESSION: 1. Acute ischemia in the LEFT CRITICAL CARE SPECIALIST territory involving the LEFT posterior temporal and parasagittal occipital lobes extending anteriorly into the parahippocampal gyrus. Area of ischemia measures approximately 4.0 x 1.8 cm. 2. Associated edema in the area of ischemia. Mild associated mass effect on the LEFT occipital horn. No hydrocephalus. No midline shift. 3. A few tiny foci of hemosiderin within the area of ischemia compatible with a small amount of petechial hemorrhage. No intraparenchymal hematoma. Notified Aiden Rodriguez MD at 06/03/2024 1:37 PM. Head MRA 06/03/24 11:59 IMPRESSION: 1. 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 Decreased flow in the mid to distal LEFT CRITICAL CARE SPECIALIST territory. This corresponds to the area of ischemia seen on the concurrent MRI 3. Mild intracranial atheromatous disease. 4. Otherwise unremarkable intracranial MRA Head CT 06/06/24 08:26 IMPRESSION: No new acute findings in comparison with 06/03/2024. Persistent acute infarction in the left occipital lobe with minor cortical hemorrhage documented on prior MRI. Laboratory Results WBC 8.38 10^3/uL (3.29-11.43) 06/07/24 04:07 RBC 4.46 10^6/uL (3.85-5.65) 06/07/24 04:07 Hgb 13.20 g/dL (11.27-16.99) 06/07/24 04:07 Hct 41.1 % (36-47) 06/07/24 04:07 MCV 92.2 fl (85-98) 06/07/24 04:07 MCH 29.6 pg (27-33) 06/07/24 04:07 MCHC 32.1 g/dL (30-55) 06/07/24 04:07 RDW 13.4 % (12.1-15.1) 06/07/24 04:07 Plt Count 268 10^3/cmm (157-399) 06/07/24 04:07 MPV 10.5 fL (7.4-10.4) H 06/07/24 04:07 Neut % (Auto) 57.8 % 06/07/24 04:07 Lymph % (Auto) 30.0 % 06/07/24 04:07 George % (Auto) 9.1 % 06/07/24 04:07 Eos % (Auto) 2.5 % 06/07/24 04:07 Baso % (Auto) 0.5 % 06/07/24 04:07 Neut # (Auto) 4.85 10^3/uL (1.8-7.7) 06/07/24 04:07 Lymph # (Auto) 2.5 10^3/uL (0.8-4.8) 06/07/24 04:07 George # (Auto) 0.8 10^3/uL (0.2-0.9) 06/07/24 04:07 Eos # (Auto) 0.2 10^3/uL (0.0-0.8) 06/07/24 04:07 Baso # (Auto) 0.0 10^3/uL (0.0-0.1) 06/07/24 04:07 Nucleated RBC % (auto) 0 % 06/07/24 04:07 Nucleated RBCs # 0.0 /100WBC 06/07/24 04:07 PT 12.90 SECONDS (12.1-14.9) 06/02/24 19:20 INR 0.95 (0.8-1.2) 06/02/24 19:20 APTT 27.0 SECONDS (23.9-36.7) 06/02/24 19:20 Sodium 142 mmol/L (136-145) 06/07/24 04:07 Potassium 3.9 mmol/L (3.5-5.1) 06/07/24 04:07 Chloride 106 mmol/L (98-107) 06/07/24 04:07 Carbon Dioxide 25 mmol/L (22-29) 06/07/24 04:07 Anion Gap 14.9 (5-19) 06/07/24 04:07 BUN 17 mg/dL (8-23) 06/07/24 04:07 Creatinine 0.6 mg/dL (0.5-0.9) 06/07/24 04:07 GFR Calculation Not Reportable 06/07/24 04:07 Glucose 96 mg/dL (65-115) 06/07/24 04:07 POC Glucose 138 mg/dL (70-110) H 06/02/24 19:10 Estimat Average Glucose 100 06/02/24 22:31 Hemoglobin A1c 5.1 % (4.0-6.0) 06/02/24 22:31 Calculated Osmolality 295 mOsm/kg (285-295) 06/07/24 04:07 Calcium 9.2 mg/dL (8.5-10.5) 06/07/24 04:07 Magnesium 1.9 mg/dL (1.7-2.3) 06/03/24 02:42 Total Bilirubin 0.3 mg/dL (0.15-1.2) 06/02/24 19:20 AST 18 U/L (0-32) 06/02/24 19:20 ALT 14 U/L (0-33) 06/02/24 19:20 Alkaline Phosphatase 92 U/L (35-105) 06/02/24 19:20 Troponin T Baseline 12 ng/L (0-10) H 06/04/24 09:21 Troponin T 120 Minute 11.53 ng/L (0-10) H 06/04/24 11:30 Delta Troponin T -0.47 ABS# (0-10) L 06/04/24 11:30 Troponin T Hi Sens 6Hr 11.22 ng/L (0-10) H 06/04/24 15:11 Troponin T Hi Sens 6Hr Delta -0.78 ng/L (0-12) L 06/04/24 15:11 Total Protein 6.4 g/dL (6.6-8.7) L 06/02/24 19:20 Albumin 3.7 g/dL (3.5-5.2) 06/02/24 19:20 Globulin 2.7 g/dL (1.3-4.6) 06/02/24 19:20 Triglycerides 262 mg/dL (0-150) H 06/02/24 22:31 Cholesterol 225 mg/dL (0-200) H 06/02/24 22:31 LDL Cholesterol, Calc 119 mg/dL (50-129) 06/02/24 22:31 Total VLDL Cholesterol 52 mg/dL (0-30) H 06/02/24 22:31 HDL Cholesterol 54 mg/dL (60-100) L 06/02/24 22:31 Cholesterol/HDL Ratio 4.17 mg/dL (0.0-4.40) 06/02/24 22:31 Vitamin B12 1517 pg/mL (232-1245) H 06/02/24 22:31 TSH 1.33 uIU/mL (0.27-4.20) 06/02/24 22:31 Urine Color Yellow (Yellow) 06/02/24 19:26 Urine Appearance Clear (CLEAR) 06/02/24 19:26 Urine pH 6.5 (5-7) 06/02/24 19:26 Ur Specific Lebo 1.010 (1.005-1.030) 06/02/24 19:26 Urine Protein 1+ (Negative) H 06/02/24 19:26 Urine Glucose (UA) Norm (Normal) 06/02/24 19:26 Urine Ketones 1+ (Negative) H 06/02/24 19:26 Urine Blood Neg (Negative) 06/02/24 19:26 Urine Nitrate Negative (Negative) 06/02/24 19:26 Urine Bilirubin Neg (Negative) 06/02/24 19:26 Urine Urobilinogen Neg mg/dL (Negative) 06/02/24 19:26 Ur Leukocyte Esterase Trace (Negative) H 06/02/24 19:26 Urine RBC 5-10 /hpf (0-2) H 06/02/24 19:26 Urine WBC 0-4 /hpf (0-5) H 06/02/24 19:26 Ur Squamous Epith Cells 5-10 /hpf (0-5) H 06/02/24 19:26 Calcium Oxalate Crystal 15-25 /hpf H 06/02/24 19:26 Amorphous Sediment Not Reportable 06/02/24 19:26 Urine Bacteria 1+ /hpf (NONE) H 06/02/24 19:26 Hyaline Casts 0-4 /lpf H 06/02/24 19:26 Urine Mucus 1+ /hpf 06/02/24 19:26 Vitals Last Vital Signs Temp 97.8 F 06/07/24 08:00 Pulse 83 06/07/24 10:00 Resp 24 H 06/07/24 10:00 BP 125/65 06/07/24 10:00 Pulse Ox 97 06/07/24 10:00 O2 Del Method Room Air 06/07/24 10:00 O2 Flow Rate 2 06/04/24 07:18 Discharge Plan Discharge Patient Disposition: Home Condition: Stable Prescriptions: New metoprolol tartrate 25 mg Tablet 25 mg PO Q12H 30 Days Qty: 60 0RF diltiazem HCl 120 mg capsule,extended release 12 hr 120 mg PO BID 30 Days Qty: 60 0RF aspirin 81 mg Tablet,Delayed Release (Dr/Ec) 81 mg PO DAILY 30 Days Qty: 30 0RF atorvastatin 40 mg Tablet 80 mg PO BEDTIME 30 Days Qty: 60 0RF Eliquis 5 mg Tablet 5 mg PO BID@0900,2100 30 Days Qty: 60 0RF Continued cyanocobalamin (vitamin B-12) 1,000 mcg capsule 1,000 mcg PO DAILY multivitamin Tablet 1 tab PO DAILY calcium carbonate [Calcium 600] 600 mg calcium (1,500 mg) Tablet 600 mg PO DAILY ascorbic acid (vitamin C) [Vitamin C] 500 mg Tablet 500 mg PO DAILY cholecalciferol (vitamin D3) [Vitamin D3] 25 mcg (1,000 unit) Capsule 25 mcg PO DAILY PreserVision AREDS-2 [id number] Capsule 1 tab PO DAILY Discontinued atenolol 25 mg tablet See Rx Instructions .ROUTE .COMPLEX Qty: 270 0RF Dose Instruction: TAKE 3 TABLETS EVERY DAY Rx Instructions: TAKE 3 TABLETS EVERY DAY Discharge Orders: Discharge Order (Routine); Ordered 06/07/24 Ordered By: Aiden Rodriguez Referrals: [facility] [Other] Jillian Mc MD [Physician] - 1 week Manuel Bañuelos MD [Referring] - 1 month (brain aneurysm) Noble Elmore MD [Physician] - 1 month (thyroid nodule) Bjorn Navarro MD [Primary Care Provider] - 1-3 days Discharge Diet: Cardiac Discharge Activity: Resume usual activity Patient Instructions: Atrial Fibrillation, Metoprolol (By mouth), Diltiazem (By mouth), Aspirin (By mouth), Atorvastatin (By mouth), Apixaban (By mouth), GI Bleeding, Ischemic Stroke (DC), Self Care Measures After a Stroke (DC), Opioid Safety Activity Restrictions/Additional Instructions: - If you have any recurrent strokelike symptoms please call 911 ? I am discharging on Eliquis 5 mg twice daily which is a very strong blood thinner, if you develop bloody or black stools, please immediately call 911 ? Please see your primary care provider on to recheck your hemoglobin, hemoglobin discharge was 13.2 ? If you have worsening confusion please go to the emergency room ? Please follow-up with neurology your appointment is June 13 at 8 AM -Please take metoprolol and diltiazem as prescribed, if you feel lightheaded or dizzy please come back to the emergency room ? Please ambulate with care -For your thyroid nodule, 15 mm, please follow-up with ENT. -For your 3 mm brain aneurysm please follow-up with neurosurgery Discharge Attestations Time Spent in Discharge Care*: greater than 30 min Quality Metrics Clinical Quality Measures [ Cerebrovascular Accident { Contraindication to Antithrombotic: None; antithrombotic prescribed; Contraindication to Anticoagulation: None; anticoagulation prescribed; Contraindication to Statin: None; Statin prescribed;}] Coding Level of Care Code 19013 Total time (in minutes) for Discharge: 45 Diagnoses Acute cerebrovascular accident (CVA) due to occlusion of left posterior cerebral artery I63.532 Brain aneurysm I67.1 Atrial fibrillation with RVR I48.91
--- NOTE | 2024-06-07 13:12 | PC.NURSE ---
Discharged patient. Appointmets made with primary Care john, and ENT Dr Elmore. Facesheet and information sent to Dr bowen office and Dr Bañuelos's office, they will call the patient with an appt time. [facility] Will call patient to arrange care. Verified correct patient phone number. New and discontinued medications reviewed with the patient and . IV removed. Patient signature form signed.
== END 2024-06-07 13:15 | disposition home health service (06) | DRG 65 ==
LOC: ER 20:15 → MEDSURG 20:59 → ICU 06-05 13:28
PROVIDERS: Admitting Provider Internal Medicine; Emergency Provider Emergency Medicine; PCP Family Medicine; Visit Provider Family Medicine
DX: I63.432 Cerebral infarction due to embolism of left posterior cerebral artery (principal); N39.0 Urinary tract infection, site not specified; R26.0 Ataxic gait; H53.8 Other visual disturbances; I48.91 Unspecified atrial fibrillation; E04.1 Nontoxic single thyroid nodule; R44.1 Visual hallucinations
CPT/HCPCS: 36415; 36416; 70450; 70496; 70498; 70544; 70551; 80048; 80053; 80061; 81001; 82607; 82962; 83036; 83735; 84443; 84484; 85025; 85610; 85730; 92523; 92610; 93005; 93306; 96372; 96376; 97110; 97116; 97161; 97165; 97530; 99285; G0378; J0696; J1644; J1650; J3490; J7030; Q9967

== ENCOUNTER → 2024-06-13 07:35 | Outpatient (BNVA) | payer MEDICARE, OTHER, SELFPAY | PROVIDERS: PCP Family Medicine; Visit Provider Psychiatry & Neurology Neurology | DX: R44.1 Visual hallucinations (principal); Z86.73 Personal history of transient ischemic attack (TIA), and cerebral infarction without residual deficits | CPT/HCPCS: 99203 ==

== ENCOUNTER 2024-06-24 06:00 | Outpatient (CLI) | payer MEDICARE, SELFPAY | END 2024-06-24 06:01 | disposition home or self-care (01) | LOC: SLEEP 08-10 06:55 | PROVIDERS: PCP Family Medicine; Visit Provider Family Medicine | DX: R30.0 Dysuria (principal) | CPT/HCPCS: 81000 ==

== ENCOUNTER 2024-07-26 12:24 | Emergency (ER) | payer MEDICARE, SELFPAY ==
[2024-07-26 12:33] VITALS: BP 152/88; PULSE 62; RESP 16; TEMP 36.8; O2SAT 96; BMI 30.9
--- NOTE | 2024-07-26 12:40 | CT_ITS ---
WS: [id number] CT HEAD TECHNIQUE: Noncontrast CT of the head obtained from the skullbase to the vertex. CLINICAL INFORMATION: Possible stroke COMPARISON: 06/06/2024 DLP: 1063.[address] scans at [facility] use at least one of these dose optimization techniques: automated e xposure control; mA and/or kV adjustment per patient size (includes targeted exams where dose is matc hed to clinical indication); or iterative reconstruction. FINDINGS: No evidence of intracranial hemorrhage or mass effect. Ventricular system and basal cisterns are aquino nt. Mild small vessel changes with mild parenchymal volume loss. Chronic infarct LEFT MAT MACHINE OPERATOR territory h as evolved compared to previous with encephalomalacia. No acute hemorrhage. Vascular calcification. P aranasal sinuses and mastoid air cells are well aerated. No other acute findings. CT/CT head wo con* [id number] IMPRESSION: 1. No evidence of intracranial hemorrhage or mass effect. 2. LEFT MAT MACHINE OPERATOR territory infarct now has a chronic appearance with encephalomalac ia, evolved compared to previous. 3. No other significant interval changes. 4. No acute intracranial findings. Notified Nataly Franklin MD at 07/26/2024 1:03 PM.
--- NOTE | 2024-07-26 13:03 | W.ED.NEUROSD ---
HPI - Neuro Symptoms/Deficit General: Chief Complaint: Neuro Symptoms/Deficit Stated Complaint: headache/blurry vision Time Seen by Provider: 07/26/24 12:40 History of Present Illness: 74-year-old female with history of stroke presents the emergency room with headache and progressively worsening vision issue since she had a stroke several months ago. She has been being followed by ophthalmology and they are okay with her vision changes. She is mainly concerned about the headache. She has got no new focal deficits. No fevers. No cough. No shortness of breath. Headache is posterior in nature. It was present last night and then went away and then came back again today Related Data Home Medications Medication Instructions Recorded Confirmed apixaban 5 mg tablet (Eliquis) 5 mg PO DAILY 07/26/24 07/26/24 aspirin 81 mg tablet,delayed 81 mg PO DAILY 07/26/24 07/26/24 release diltiazem HCl 120 mg 120 mg PO DAILY 07/26/24 07/26/24 capsule,extended release 12 hr metoprolol tartrate 25 mg tablet 25 mg PO DAILY 07/26/24 07/26/24 therapeutic multivitamin 10 ml PO DAILY 07/26/24 07/26/24 Previous Rx's Medication Instructions Recorded atorvastatin 40 mg tablet 40 mg PO BEDTIME 30 days #90 tabs 07/05/24 Allergies Allergy/AdvReac Type Severity Reaction Status Date / Time Sulfa (Sulfonamide Allergy ALGY-Rash Verified 06/13/24 07:39 Antibiotics) Review of Systems Narrative: Constitutional symptoms: Negative except as documented in HPI. Skin symptoms: Negative except as documented in HPI. Eye symptoms: Negative except as documented in HPI. ENMT symptoms: Negative except as documented in HPI. Respiratory symptoms: Negative except as documented in HPI. Cardiovascular symptoms: Negative except as documented in HPI. Gastrointestinal symptoms: Negative except as documented in HPI. Genitourinary symptoms: Negative except as documented in HPI. Musculoskeletal symptoms: Negative except as documented in HPI. Neurologic symptoms: Negative except as documented in HPI. Psychiatric symptoms: Negative except as documented in HPI. Endocrine symptoms: Negative except as documented in HPI. [facility] ED PFSH: Medical History (Updated 07/26/24 @ 13:44 by Nataly Franklin MD) Aortic stenosis, moderate Acute cerebrovascular accident (CVA) due to occlusion of left posterior cerebral artery Hypertension Social History Smoking and tobacco/nicotine status: never used tobacco/nicotine Physical Exam Narrative: EXAM NARRATIVE: General: Alert, no acute distress. Skin: Warm, dry. Head: Normocephalic, atraumatic. Neck: Supple, trachea midline. Eye: Extraocular movements are intact. Ears, nose, mouth and throat: mucosa moist. Cardiovascular: Regular, Normal peripheral perfusion. Respiratory: Lungs are clear to auscultation, respirations are non-labored, breath sounds are equal, Symmetrical chest wall expansion. Gastrointestinal: Soft, Nontender, Non distended Musculoskeletal: Normal ROM, no deformity. Neurological: Alert and oriented, No focal neurological deficit observed. Psychiatric: Cooperative, appropriate mood & affect. Course Vital Signs: Vital signs: Vital Signs Temperature 98.2 F 07/26/24 12:33 Pulse Rate 55 L 07/26/24 14:16 Respiratory Rate 16 07/26/24 14:16 Blood Pressure 111/85 07/26/24 14:16 Pulse Oximetry 96 07/26/24 14:16 Oxygen Delivery Me thod Room Air 07/26/24 12:33 MDM - Neuro Symptoms/Deficit Medical Decision Making CT head: No acute intracranial process. no intracranial hemorrhage, no evidence of infarct. no evidence of acute fracture.This was reviewed and interpreted by myself the ER physician. Labwork: Lab work was reviewed and interpreted by myself emergency room physician: No acute lab work abnormalities. Urinalysis is clear. Patient did decline a COVID test. Assessment and plan: Headache History of a CVA - Discharged home - Discussed plan with patient. Answered any questions. - Evaluation and treatment of this problem were appropriate in the emergency setting. Lab Data 07/26/24 12:58 07/26/24 12:[address] 07/26/24 12:40 IMPRESSION: 1. No evidence of intracranial hemorrhage or mass effect. 2. LEFT AUTO WINDER territory infarct now has a chronic appearance with encephalomalacia, evolved compared to previous. 3. No other significant interval changes. 4. No acute intracranial findings. Notified Nataly Franklin MD at 07/26/2024 1:03 PM. Laboratory Results WBC 6.58 10^3/uL (3.29-11.43) 07/26/24 12:58 RBC 4.45 10^6/uL (3.85-5.65) 07/26/24 12:58 Hgb 13.50 g/dL (11.27-16.99) 07/26/24 12:58 Hct 41.6 % (36-47) 07/26/24 12:58 MCV 93.5 fl (85-98) 07/26/24 12:58 MCH 30.3 pg (27-33) 07/26/24 12:58 MCHC 32.5 g/dL (30-55) 07/26/24 12:58 RDW 13.3 % (12.1-15.1) 07/26/24 12:58 Plt Count 277 10^3/cmm (157-399) 07/26/24 12:58 MPV 10.6 fL (7.4-10.4) H 07/26/24 12:58 Neut % (Auto) 61.1 % 07/26/24 12:58 Lymph % (Auto) 27.8 % 07/26/24 12:58 [place] % (Auto) 6.2 % 07/26/24 12:58 Eos % (Auto) 3.8 % 07/26/24 12:58 Baso % (Auto) 0.9 % 07/26/24 12:58 Neut # (Auto) 4.02 10^3/uL (1.8-7.7) 07/26/24 12:58 Lymph # (Auto) 1.8 10^3/uL (0.8-4.8) 07/26/24 12:58 [place] # (Auto) 0.4 10^3/uL (0.2-0.9) 07/26/24 12:58 Eos # (Auto) 0.3 10^3/uL (0.0-0.8) 07/26/24 12:58 Baso # (Auto) 0.1 10^3/uL (0.0-0.1) 07/26/24 12:58 Nucleated RBC % (auto) 0 % 07/26/24 12:58 Nucleated RBCs # 0.0 /100WBC 07/26/24 12:58 Sodium 141 mmol/L (136-145) 07/26/24 12:58 Potassium 3.6 mmol/L (3.5-5.1) 07/26/24 12:58 Chloride 106 mmol/L (98-107) 07/26/24 12:58 Carbon Dioxide 23 mmol/L (22-29) 07/26/24 12:58 Anion Gap 15.6 (5-19) 07/26/24 12:58 BUN 15 mg/dL (8-23) 07/26/24 12:58 Creatinine 0.7 mg/dL (0.5-0.9) 07/26/24 12:58 GFR Calculation Not Reportable 07/26/24 12:58 Glucose 101 mg/dL (65-115) 07/26/24 12:58 Calculated Osmolality 293 mOsm/kg (285-295) 07/26/24 12:58 Lactic Acid 1.0 mmol/L (0.5-2.2) 07/26/24 12:58 Calcium 8.9 mg/dL (8.5-10.5) 07/26/24 12:58 Total Bilirubin 0.6 mg/dL (0.15-1.2) 07/26/24 12:58 AST 78 U/L (0-32) H 07/26/24 12:58 ALT 57 U/L (0-33) H 07/26/24 12:58 Alkaline Phosphatase 91 U/L (35-105) 07/26/24 12:58 C-Reactive Protein 3.0 mg/L (0.0-4.9) 07/26/24 12:58 Total Protein 6.9 g/dL (6.6-8.7) 07/26/24 12:58 Albumin 4.0 g/dL (3.5-5.2) 07/26/24 12:58 Globulin 2.9 g/dL (1.3-4.6) 07/26/24 12:58 All radiology interpretation(s) finalized by discharge Discharge Plan Discharge Patient Disposition: Home Clinical Impression: Headache, History of stroke Condition: Stable Prescriptions: No Action atorvastatin 40 mg tablet 40 mg PO BEDTIME 30 Days Qty: 90 2RF Multivitamin Therapeutic Liquid 10 ml PO DAILY aspirin 81 mg tablet,delayed release (DR/EC) 81 mg PO DAILY diltiazem HCl 120 mg capsule,extended release 12 hr 120 mg PO DAILY metoprolol tartrate 25 mg tablet 25 mg PO DAILY Eliquis 5 mg tablet 5 mg PO DAILY Discharge Orders: Discharge ED (Routine); Ordered 07/26/24 Ordered By: Nataly Franklin Referrals: Bjorn Navarro MD [Primary Care Provider] - Discharge Diet: Usual diet Discharge Activity: Increase activity as tolerated Patient Instructions: Opioid Safety, Pain Management Activity Restrictions/Additional Instructions: Please follow-up with Dr. Steen and with Dr. Peterson as soon as possible. Thank you for choosing [facility] for your healthcare needs today. Please realize this is an emergency room and that we are providing you with a medical screening exam and this may not be complete and all inclusive of all the testing and or work up that you may need to determine your ailment or severity of your illness. You have been screened and evaluated and felt safe for discharge. Health conditions do change or evolve sometimes and as such it is important that you follow up with your Primary Doctor to be re checked, 3-5 days is a general good time frame for follow up. You are always welcome to return to the ED for re assessment if your symptoms are worsening or you have new concerns Coding Level of Care Code ED Associate Professor Of Sociology for Kellee Grandaos
[2024-07-26 13:09] LABS: Basophils # 0.1 10^3/uL (0.0-0.1); Basophils % 0.9 %; Eosinophils # 0.3 10^3/uL (0.0-0.8); Eosinophils % 3.8 %; Hematocrit 41.6 % (36-47); Lymphocytes # 1.8 10^3/uL (0.8-4.8); Lymphocytes % 27.8 %; Mean Corpuscular HGB Conc 32.5 g/dL (30-55); Mean Corpuscular Hemoglobin 30.3 pg (27-33); Mean Corpuscular Volume 93.5 fl (85-98); Mean Platelet Volume 10.6 fL (7.4-10.4); Monocytes # 0.4 10^3/uL (0.2-0.9); Monocytes % 6.2 %; Neutrophils # 4.02 10^3/uL (1.8-7.7); Neutrophils % 61.1 %; Nucleated Red Blood Cells % 0 %; Platelet Count 277 10^3/cmm (157-399); Red Blood Count 4.45 10^6/uL (3.85-5.65); Red Cell Distribution Width 13.3 % (12.1-15.1); White Blood Count 6.58 10^3/uL (3.29-11.43)
[2024-07-26 13:36] LABS: Alanine Aminotransferase 57 U/L (0-33); Alkaline Phosphatase 91 U/L (35-105); Anion Gap 15.6 (5-19); Aspartate Amino Transferase 78 U/L (0-32); Blood Urea Nitrogen 15 mg/dL (8-23); Calcium 8.9 mg/dL (8.5-10.5); Carbon Dioxide 23 mmol/L (22-29); Chloride 106 mmol/L (98-107); Creatinine Clr Calc Pharmacy 59.1415; Globulin 2.9 g/dL (1.3-4.6); Glucose 101 mg/dL (65-115); Osmolality Calculated 293 mOsm/kg (285-295); Potassium 3.6 mmol/L (3.5-5.1); Sodium 141 mmol/L (136-145); Total Bilirubin 0.6 mg/dL (0.15-1.2); Total Protein 6.9 g/dL (6.6-8.7)
[2024-07-26 14:16] VITALS: BP 111/85; PULSE 55; RESP 16; O2SAT 96
== END 2024-07-26 14:17 | disposition home or self-care (01) ==
PROVIDERS: Emergency Provider Emergency Medicine; PCP Family Medicine
DX: R51.9 Headache, unspecified (principal); Z86.73 Personal history of transient ischemic attack (TIA), and cerebral infarction without residual deficits; Z79.82 Long term (current) use of aspirin; Z79.01 Long term (current) use of anticoagulants; I10 Essential (primary) hypertension
CPT/HCPCS: 36415; 70450; 80053; 83605; 85025; 86140; 99284

== ENCOUNTER → 2024-08-16 13:24 | Outpatient (BNVA) | payer MEDICARE, OTHER, SELFPAY | PROVIDERS: PCP Family Medicine; Referring Provider Psychiatry & Neurology Neurology; Visit Provider Psychiatry & Neurology Neurology | DX: R44.1 Visual hallucinations (principal); G40.89 Other seizures; I63.9 Cerebral infarction, unspecified | CPT/HCPCS: 95816 ==

== ENCOUNTER 2024-09-13 03:50 | Emergency (ER) | payer MEDICARE, SELFPAY ==
[2024-09-13] VITALS (7 sets, daily range): BP systolic 134–146; BP diastolic 71–106; PULSE 69–84; RESP 12–18; TEMP 36.7; O2SAT 96–100; BMI 30.9
--- NOTE | 2024-09-13 03:56 | ECG_ITS ---
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 Measurements Intervals [place] Rate: 77 P: 79 WA: 155 QRS: -2 QRSD: 77 T: 4 QT: 358 QTc: 406 Interpretive Statements SINUS RHYTHM MODERATE ST DEPRESSION [0.05+ mV ST DEPRESSION] Compared to ECG 06/06/2024 08:22:56 ST (T wave) deviation now present Atrial flutter no longer present Intraventricular conduction delay no longer present Electronically Signed On 09-14-2024 01:05:02 CDT by Jacob Koehler M.D. [email or web address]
--- NOTE | 2024-09-13 03:56 | XRR_ITS ---
PROCEDURE INFORMATION: Exam: XR Chest Exam date and time: 09/13/2024 4:08 AM Age: 74 years old Clinical indication: Pain; Chest pressure; Additional info: Chest pain TECHNIQUE: Imaging protocol: Radiologic exam of the chest. Views: 1 view. COMPARISON: CT angio chest w abd pel w con 05/28/2020 3:14 PM FINDINGS: Lungs: Unremarkable. No consolidation. Pleural spaces: Unremarkable. No pleural effusion. No pneumothorax. Heart/Mediastinum: Unremarkable. No cardiomegaly. Atherosclerotic disease of the aortic arch. Bones/joints: Unremarkable. Scattered degenerative change. XR/XR chest 1V portable [id number] IMPRESSION: No acute findings.
--- NOTE | 2024-09-13 04:00 | W.ED.CHESTPA ---
Documented by User: Nataly Franklin MD 09/13/24 05:55 HPI - Chest Pain General: Chief Complaint: Chest Pain Stated Complaint: CP SOB better now Time Seen by Provider: 09/13/24 03:51 History of Present Illness: 74-year-old female with a history of cerebrovascular accident with no significant residual effects, atrial fibrillation on Eliquis who presents the emergency room with chest pain. She says she has a murmur and she has planned workup with Dr. Diaz and cardiology. Says tonight she awoke from sleep with her heart pounding and some pressure in her center chest. This resolved spontaneously after a few minutes. Her insisted that she come to the emergency room for workup. No fevers. No cough. No lower extremity swelling. No abdominal pain. No nausea or vomiting. Related Data Home Medications Medication Instructions Recorded Confirmed therapeutic multivitamin 10 ml PO DAILY 07/26/24 09/13/24 cyclobenzaprine 5 mg tablet 5 mg PO TID PRN Pain 09/13/24 09/13/24 vit C 250 mg-vit E 90 mg-zinc 40 1 cap PO DAILY 09/13/24 09/13/24 mg-copper 1 [id number] capsule (PreserVision AREDS-2) Previous Rx's Medication Instructions Recorded atorvastatin 40 mg tablet 40 mg PO BEDTIME 30 days #90 tabs 07/05/24 apixaban 5 mg tablet (Eliquis) 5 mg PO DAILY #90 tabs 08/08/24 aspirin 81 mg tablet,delayed 81 mg PO DAILY #90 tabs 08/08/24 release diltiazem HCl 120 mg 120 mg PO DAILY #90 caps 08/08/24 capsule,extended release 12 hr metoprolol tartrate 25 mg tablet 25 mg PO DAILY #90 tabs 08/08/24 Allergies Allergy/AdvReac Type Severity Reaction Status Date / Time Sulfa (Sulfonamide Allergy ALGY-Rash Verified 09/13/24 04:02 Antibiotics) Review of Systems Narrative: Constitutional symptoms: Negative except as documented in HPI. Skin symptoms: Negative except as documented in HPI. Eye symptoms: Negative except as documented in HPI. ENMT symptoms: Negative except as documented in HPI. Respiratory symptoms: Negative except as documented in HPI. Cardiovascular symptoms: Negative except as documented in HPI. Gastrointestinal symptoms: Negative except as documented in HPI. Genitourinary symptoms: Negative except as documented in HPI. Musculoskeletal symptoms: Negative except as documented in HPI. Neurologic symptoms: Negative except as documented in HPI. Psychiatric symptoms: Negative except as documented in HPI. Endocrine symptoms: Negative except as documented in HPI. [facility] ED PFSH: Medical History Aortic stenosis, moderate Acute cerebrovascular accident (CVA) due to occlusion of left posterior cerebral artery Hypertension Social History Smoking and tobacco/nicotine status: never used tobacco/nicotine Physical Exam Narrative: EXAM NARRATIVE: General: Alert, no acute distress. Skin: Warm, dry. Head: Normocephalic, atraumatic. Neck: Supple, trachea midline. Eye: Extraocular movements are intact. Ears, nose, mouth and throat: mucosa moist. Cardiovascular: Regular, Normal peripheral perfusion. Respiratory: Lungs are clear to auscultation, respirations are non-labored, breath sounds are equal, Symmetrical chest wall expansion. Gastrointestinal: Soft, Nontender, Non distended Musculoskeletal: Normal ROM, no deformity. Neurological: Alert and oriented, No focal neurological deficit observed. Psychiatric: Cooperative, appropriate mood & affect. Course Vital Signs: Vital signs: Vital Signs Temperature 98.1 F 09/13/24 03:54 Pulse Rate 74 09/13/24 07:45 Respiratory Rate 16 09/13/24 06:00 Blood Pressure 134/106 09/13/24 07:45 Pulse Oximetry 96 09/13/24 07:45 Oxygen Delivery Me thod Room Air 09/13/24 03:54 MDM - Chest Pain Medical Decision Making Differential diagnosis for patient with chest pain includes but is not limited to and based on the above HPI, review of systems and physical exam: Pneumonia. unstable angina. angina. Acute coronary syndrome / [place]. Pulmonary embolism. Costochondritis / musculoskeletal. Pleurisy. Pericarditis. Esophageal spasm. Pancreatis. Cholecystitis. Orders placed to evaluate differential diagnosis based on the above differential, HPI and physical exam EKG: Time 3:53 AM. Rate 77. Normal sinus rhythm, some anterior lateral ST depression that was present in previous EKGs., no ectopy, normal SC & QRS intervals, This was reviewed and interpreted by myself the ER physician at 4 AM. Chest x-ray: No acute process. No infiltrate. No pneumothorax. This was reviewed and interpreted by myself the ER physician. Lab Review: Laboratory results were reviewed and interpreted by myself the emergency room physician. Mild leukocytosis with a white count of 11,000. Hemoglobin normal at 14.6. Patient care transitioned to Dr. Pope at shift change. Awaiting final troponin. Lab Data 09/13/24 04:13 09/13/24 04:13 Radiology Impressions Chest X-Ray 09/13/24 03:56 IMPRESSION: No acute findings. Laboratory Results WBC 11.29 10^3/uL (3.29-11.43) 09/13/24 04:13 RBC 4.84 10^6/uL (3.85-5.65) 09/13/24 04:13 Hgb 14.60 g/dL (11.27-16.99) 09/13/24 04:13 Hct 45.1 % (36-47) 09/13/24 04:13 MCV 93.2 fl (85-98) 09/13/24 04:13 MCH 30.2 pg (27-33) 09/13/24 04:13 MCHC 32.4 g/dL (30-55) 09/13/24 04:13 RDW 13.4 % (12.1-15.1) 09/13/24 04:13 Plt Count 281 10^3/cmm (157-399) 09/13/24 04:13 MPV 10.5 fL (7.4-10.4) H 09/13/24 04:13 Neut % (Auto) 65.5 % 09/13/24 04:13 Lymph % (Auto) 20.3 % 09/13/24 04:13 [place] % (Auto) 7.4 % 09/13/24 04:13 Eos % (Auto) 6.0 % 09/13/24 04:13 Baso % (Auto) 0.4 % 09/13/24 04:13 Neut # (Auto) 7.40 10^3/uL (1.8-7.7) 09/13/24 04:13 Lymph # (Auto) 2.3 10^3/uL (0.8-4.8) 09/13/24 04:13 [place] # (Auto) 0.8 10^3/uL (0.2-0.9) 09/13/24 04:13 Eos # (Auto) 0.7 10^3/uL (0.0-0.8) 09/13/24 04:13 Baso # (Auto) 0.0 10^3/uL (0.0-0.1) 09/13/24 04:13 Nucleated RBC % (auto) 0 % 09/13/24 04:13 Nucleated RBCs # 0.0 /100WBC 09/13/24 04:13 Sodium 140 mmol/L (136-145) 09/13/24 04:13 Potassium 3.8 mmol/L (3.5-5.1) 09/13/24 04:13 Chloride 104 mmol/L (98-107) 09/13/24 04:13 Carbon Dioxide 25 mmol/L (22-29) 09/13/24 04:13 Anion Gap 14.8 (5-19) 09/13/24 04:13 BUN 20 mg/dL (8-23) 09/13/24 04:13 Creatinine 0.7 mg/dL (0.5-0.9) 09/13/24 04:13 GFR Calculation Not Reportable 09/13/24 04:13 Glucose 109 mg/dL (65-115) 09/13/24 04:13 Calculated Osmolality 293 mOsm/kg (285-295) 09/13/24 04:13 Calcium 8.8 mg/dL (8.5-10.5) 09/13/24 04:13 Total Bilirubin 0.6 mg/dL (0.15-1.2) 09/13/24 04:13 AST 19 U/L (0-32) 09/13/24 04:13 ALT 21 U/L (0-33) 09/13/24 04:13 Alkaline Phosphatase 94 U/L (35-105) 09/13/24 04:13 Troponin T Baseline 13 ng/L (0-10) H 09/13/24 04:13 Troponin T 120 Minute 10.37 ng/L (0-10) H 09/13/24 06:24 Delta Troponin T -2.63 ABS# (0-10) L 09/13/24 06:24 Total Protein 6.2 g/dL (6.6-8.7) L 09/13/24 04:13 Albumin 4.1 g/dL (3.5-5.2) 09/13/24 04:13 Globulin 2.1 g/dL (1.3-4.6) 09/13/24 04:13 Discharge Plan Discharge Patient Disposition: Home Clinical Impression: Atypical chest pain, Atrial fibrillation, Aortic stenosis, moderate Condition: Stable Prescriptions: No Action atorvastatin 40 mg tablet 40 mg PO BEDTIME 30 Days Qty: 90 2RF metoprolol tartrate 25 mg tablet 25 mg PO DAILY Qty: 90 3RF diltiazem HCl 120 mg capsule,extended release 12 hr 120 mg PO DAILY Qty: 90 3RF aspirin 81 mg tablet,delayed release (DR/EC) 81 mg PO DAILY Qty: 90 3RF Eliquis 5 mg tablet 5 mg PO DAILY Qty: 90 3RF Multivitamin Therapeutic Liquid 10 ml PO DAILY cyclobenzaprine 5 mg tablet 5 mg PO TID PRN (Reason: Pain) PreserVision AREDS-2 250-90-40-1 mg Capsule 1 cap PO DAILY Discharge Orders: Discharge ED (Routine); Ordered 09/13/24 Ordered By: Javed Pope Referrals: Shelby Felix PA [Primary Care Provider] - Discharge Diet: Usual diet Patient Instructions: Opioid Safety, Pain Management Activity Restrictions/Additional Instructions: Thank you for choosing [facility] for your healthcare needs today. It is very important that you follow up as instructed or that you return to the Emergency Department should you have concerns or if your condition changes or worsens in any way. You were seen in the emergency room after episodes of chest discomfort your EKGs did not show any acute changes from previous EKGs your cardiac enzymes did not shows significant elevation. Will discharge you from the emergency room and recommend that you have a follow-up outpatient Lexiscan sestamibi stress test. general road production manager will make arrangements for this. Continue your other medications. Sign Out Sign Out Data: Patient Sign Out occurred on 09/13/24 at 05:59. Patient's care was discussed, and care was transferred from Nataly Franklin MD to Javed Pope DO. Coding Level of Care Code ED Refinery Operator Assistant for Chg Fwd Documented by User: Javed Pope DO 09/13/24 09:24 HPI - Chest Pain General: Chief Complaint: Chest Pain Stated Complaint: CP SOB better now Time Seen by Provider: 09/13/24 03:51 Related Data Home Medications Medication Instructions Recorded Confirmed therapeutic multivitamin 10 ml PO DAILY 07/26/24 09/13/24 cyclobenzaprine 5 mg tablet 5 mg PO TID PRN Pain 09/13/24 09/13/24 vit C 250 mg-vit E 90 mg-zinc 40 1 cap PO DAILY 09/13/24 09/13/24 mg-copper 1 [id number] capsule (PreserVision AREDS-2) Previous Rx's Medication Instructions Recorded atorvastatin 40 mg tablet 40 mg PO BEDTIME 30 days #90 tabs 07/05/24 apixaban 5 mg tablet (Eliquis) 5 mg PO DAILY #90 tabs 08/08/24 aspirin 81 mg tablet,delayed 81 mg PO DAILY #90 tabs 08/08/24 release diltiazem HCl 120 mg 120 mg PO DAILY #90 caps 08/08/24 capsule,extended release 12 hr metoprolol tartrate 25 mg tablet 25 mg PO DAILY #90 tabs 08/08/24 Allergies Allergy/AdvReac Type Severity Reaction Status Date / Time Sulfa (Sulfonamide Allergy ALGY-Rash Verified 09/13/24 04:02 Antibiotics) PFSH ED PFSH: Medical History Aortic stenosis, moderate Acute cerebrovascular accident (CVA) due to occlusion of left posterior cerebral artery Hypertension Social History Smoking and tobacco/nicotine status: never used tobacco/nicotine Course Vital Signs: Vital signs: Vital Signs Temperature 98.1 F 09/13/24 03:54 Pulse Rate 74 09/13/24 07:45 Respiratory Rate 16 09/13/24 06:00 Blood Pressure 134/106 09/13/24 07:45 Pulse Oximetry 96 09/13/24 07:45 Oxygen Delivery Me thod Room Air 09/13/24 03:54 MDM - Chest Pain Medical Decision Making Differential diagnosis for patient with chest pain includes but is not limited to and based on the above HPI, review of systems and physical exam: Pneumonia. unstable angina. angina. Acute coronary syndrome / [place]. Pulmonary embolism. Costochondritis / musculoskeletal. Pleurisy. Pericarditis. Esophageal spasm. Pancreatis. Cholecystitis. Orders placed to evaluate differential diagnosis based on the above differential, HPI and physical exam EKG: Time 3:53 AM. Rate 77. Normal sinus rhythm, some anterior lateral ST depression that was present in previous EKGs., no ectopy, normal SC & QRS intervals, This was reviewed and interpreted by myself the ER physician at 4 AM. Chest x-ray: No acute process. No infiltrate. No pneumothorax. This was reviewed and interpreted by myself the ER physician. Lab Review: Laboratory results were reviewed and interpreted by myself the emergency room physician. Mild leukocytosis with a white count of 11,000. Hemoglobin normal at 14.6. Patient care transitioned to Dr. Pope at shift change. Awaiting final troponin. Patient is chest pain-free. She has had the symptoms for several weeks intermittently her EKG does not show any change when compared to EKG from 06/04/2024. She has known atrial fibrillation and aortic stenosis. She is not in any decompensated heart failure. Will discharge patient home set up for outpatient Lexiscan sestamibi stress test Lab Data 09/13/24 04:13 09/13/24 04:13 Radiology Impressions Chest X-Ray 09/13/24 03:56 IMPRESSION: No acute findings. Laboratory Results WBC 11.29 10^3/uL (3.29-11.43) 09/13/24 04:13 RBC 4.84 10^6/uL (3.85-5.65) 09/13/24 04:13 Hgb 14.60 g/dL (11.27-16.99) 09/13/24 04:13 Hct 45.1 % (36-47) 09/13/24 04:13 MCV 93.2 fl (85-98) 09/13/24 04:13 MCH 30.2 pg (27-33) 09/13/24 04:13 MCHC 32.4 g/dL (30-55) 09/13/24 04:13 RDW 13.4 % (12.1-15.1) 09/13/24 04:13 Plt Count 281 10^3/cmm (157-399) 09/13/24 04:13 MPV 10.5 fL (7.4-10.4) H 09/13/24 04:13 Neut % (Auto) 65.5 % 09/13/24 04:13 Lymph % (Auto) 20.3 % 09/13/24 04:13 [place] % (Auto) 7.4 % 09/13/24 04:13 Eos % (Auto) 6.0 % 09/13/24 04:13 Baso % (Auto) 0.4 % 09/13/24 04:13 Neut # (Auto) 7.40 10^3/uL (1.8-7.7) 09/13/24 04:13 Lymph # (Auto) 2.3 10^3/uL (0.8-4.8) 09/13/24 04:13 [place] # (Auto) 0.8 10^3/uL (0.2-0.9) 09/13/24 04:13 Eos # (Auto) 0.7 10^3/uL (0.0-0.8) 09/13/24 04:13 Baso # (Auto) 0.0 10^3/uL (0.0-0.1) 09/13/24 04:13 Nucleated RBC % (auto) 0 % 09/13/24 04:13 Nucleated RBCs # 0.0 /100WBC 09/13/24 04:13 Sodium 140 mmol/L (136-145) 09/13/24 04:13 Potassium 3.8 mmol/L (3.5-5.1) 09/13/24 04:13 Chloride 104 mmol/L (98-107) 09/13/24 04:13 Carbon Dioxide 25 mmol/L (22-29) 09/13/24 04:13 Anion Gap 14.8 (5-19) 09/13/24 04:13 BUN 20 mg/dL (8-23) 09/13/24 04:13 Creatinine 0.7 mg/dL (0.5-0.9) 09/13/24 04:13 GFR Calculation Not Reportable 09/13/24 04:13 Glucose 109 mg/dL (65-115) 09/13/24 04:13 Calculated Osmolality 293 mOsm/kg (285-295) 09/13/24 04:13 Calcium 8.8 mg/dL (8.5-10.5) 09/13/24 04:13 Total Bilirubin 0.6 mg/dL (0.15-1.2) 09/13/24 04:13 AST 19 U/L (0-32) 09/13/24 04:13 ALT 21 U/L (0-33) 09/13/24 04:13 Alkaline Phosphatase 94 U/L (35-105) 09/13/24 04:13 Troponin T Baseline 13 ng/L (0-10) H 09/13/24 04:13 Troponin T 120 Minute 10.37 ng/L (0-10) H 09/13/24 06:24 Delta Troponin T -2.63 ABS# (0-10) L 09/13/24 06:24 Total Protein 6.2 g/dL (6.6-8.7) L 09/13/24 04:13 Albumin 4.1 g/dL (3.5-5.2) 09/13/24 04:13 Globulin 2.1 g/dL (1.3-4.6) 09/13/24 04:13 All radiology interpretation(s) finalized by discharge Clincial Decision Support The following clinical decision support tools were used to aid in care of the patient HEART Score -> History: Slightly Suspicous, EKG: Normal (No change from previous EKG 06/04/2024), Age: 65 or more yrs, Risk Factors: 1 or 2 Risk Factors, Troponin: Baseline Trop <16 ng/L. Resulting HEART Score: 3. Discharge Plan Discharge Patient Disposition: Home Clinical Impression: Atypical chest pain, Atrial fibrillation, Aortic stenosis, moderate Condition: Stable Prescriptions: No Action atorvastatin 40 mg tablet 40 mg PO BEDTIME 30 Days Qty: 90 2RF metoprolol tartrate 25 mg tablet 25 mg PO DAILY Qty: 90 3RF diltiazem HCl 120 mg capsule,extended release 12 hr 120 mg PO DAILY Qty: 90 3RF aspirin 81 mg tablet,delayed release (DR/EC) 81 mg PO DAILY Qty: 90 3RF Eliquis 5 mg tablet 5 mg PO DAILY Qty: 90 3RF Multivitamin Therapeutic Liquid 10 ml PO DAILY cyclobenzaprine 5 mg tablet 5 mg PO TID PRN (Reason: Pain) PreserVision AREDS-2 250-90-40-1 mg Capsule 1 cap PO DAILY Discharge Orders: Discharge ED (Routine); Ordered 09/13/24 Ordered By: Javed Pope Referrals: Shelby Felix PA [Primary Care Provider] - Discharge Diet: Usual diet Patient Instructions: Opioid Safety, Pain Management Activity Restrictions/Additional Instructions: Thank you for choosing [facility] for your healthcare needs today. It is very important that you follow up as instructed or that you return to the Emergency Department should you have concerns or if your condition changes or worsens in any way. You were seen in the emergency room after episodes of chest discomfort your EKGs did not show any acute changes from previous EKGs your cardiac enzymes did not shows significant elevation. Will discharge you from the emergency room and recommend that you have a follow-up outpatient Lexiscan sestamibi stress test. general road production manager will make arrangements for this. Continue your other medications. Sign Out Sign Out Data: Patient Sign Out occurred on 09/13/24 at 05:59. Patient's care was discussed, and care was transferred from Nataly Franklin MD to Javed Pope DO. Coding Level of Care Code ED Refinery Operator Assistant for Kellee Granados
[2024-09-13 04:17] LABS: Basophils % 0.4 %; Eosinophils # 0.7 10^3/uL (0.0-0.8); Hematocrit 45.1 % (36-47); Lymphocytes # 2.3 10^3/uL (0.8-4.8); Lymphocytes % 20.3 %; Mean Corpuscular HGB Conc 32.4 g/dL (30-55); Mean Corpuscular Hemoglobin 30.2 pg (27-33); Mean Corpuscular Volume 93.2 fl (85-98); Mean Platelet Volume 10.5 fL (7.4-10.4); Monocytes # 0.8 10^3/uL (0.2-0.9); Monocytes % 7.4 %; Neutrophils % 65.5 %; Nucleated Red Blood Cells % 0 %; Platelet Count 281 10^3/cmm (157-399); Red Blood Count 4.84 10^6/uL (3.85-5.65); Red Cell Distribution Width 13.4 % (12.1-15.1); White Blood Count 11.29 10^3/uL (3.29-11.43)
[2024-09-13 04:35] LABS: Troponin(5th) Baseline 13 ng/L (0-10)
[2024-09-13 04:38] LABS: Alanine Aminotransferase 21 U/L (0-33); Albumin Level 4.1 g/dL (3.5-5.2); Alkaline Phosphatase 94 U/L (35-105); Anion Gap 14.8 (5-19); Aspartate Amino Transferase 19 U/L (0-32); Blood Urea Nitrogen 20 mg/dL (8-23); Calcium 8.8 mg/dL (8.5-10.5); Carbon Dioxide 25 mmol/L (22-29); Chloride 104 mmol/L (98-107); Creatinine Clr Calc Pharmacy 59.1415; Globulin 2.1 g/dL (1.3-4.6); Glucose 109 mg/dL (65-115); Osmolality Calculated 293 mOsm/kg (285-295); Potassium 3.8 mmol/L (3.5-5.1); Sodium 140 mmol/L (136-145); Total Bilirubin 0.6 mg/dL (0.15-1.2); Total Protein 6.2 g/dL (6.6-8.7)
--- NOTE | 2024-09-13 05:59 | ECG_ITS ---
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 Measurements Intervals [place] Rate: 74 P: 0 MA: 0 QRS: -1 QRSD: 85 T: -5 QT: 387 QTc: 432 Interpretive Statements ATRIAL FIBRILLATION MINIMAL ST DEPRESSION [0.025+ mV ST DEPRESSION] ABNORMAL RHYTHM ECG Compared to ECG 09/13/2024 03:55:23 Sinus rhythm no longer present ST (T wave) deviation still present Electronically Signed On 09-15-2024 01:13:32 CDT by Jacob Koehler M.D. [email or web address]
[2024-09-13 06:48] LABS: Troponin 5 2HR 10.37 ng/L (0-10)
[2024-09-13 06:51] LABS: Troponin 5 2HR Delta -2.63 ABS# (0-10)
--- NOTE | 2024-09-15 07:26 | DCPLANNER ---
faxed outpatient order to scheduling for er f/u
== END 2024-09-13 07:50 | disposition home or self-care (01) ==
PROVIDERS: Emergency Medicine; Emergency Provider Family Medicine; PCP Physician Assistant
DX: R07.89 Other chest pain (principal); I48.91 Unspecified atrial fibrillation; I35.0 Nonrheumatic aortic (valve) stenosis; Z79.82 Long term (current) use of aspirin; Z79.01 Long term (current) use of anticoagulants; I10 Essential (primary) hypertension
CPT/HCPCS: 36415; 71045; 80053; 84484; 85025; 93005; 99285

== ENCOUNTER 2024-09-14 12:35 | Outpatient (CLI) | payer MEDICARE, SELFPAY ==
--- NOTE | 2024-09-14 12:38 | MM_ITS ---
WS: [id number] Bilateral screening 3D tomosynthesis digital mammogram, 09/14/2024 12:38 PM Clinical Data: SCREENING Comparison: 05/08/2022, 10/17/2016, 07/27/2015, 04/28/2014, 01/14/2013, 08/01/2009, 07/24/2008, 07/23/2007. Findings: No spiculated masses or clustered calcifications are seen. There are no secondary signs of carcinoma . MM/MM scr BI tomosynthesis 23000 Impression: Negative bilateral mammogram unchanged. Recommend annual screening mammograms. BIRADS: 1 - Negative. FOLLOW UP: 1 Year Follow-up DENSITY: There are scattered areas of fibroglandular density. The CAD credit report checker was used
== END 2024-09-14 12:36 | disposition home or self-care (01) ==
LOC: RAD 12:36
PROVIDERS: PCP Physician Assistant; Visit Provider Physician Assistant
DX: Z12.31 Encounter for screening mammogram for malignant neoplasm of breast (principal)
CPT/HCPCS: 77063; 77067

== ENCOUNTER → 2024-09-22 13:33 | Outpatient (BNVA) | payer MEDICARE, SELFPAY | PROVIDERS: PCP Physician Assistant; Visit Provider Internal Medicine Cardiovascular Disease | DX: R07.9 Chest pain, unspecified (principal); I48.91 Unspecified atrial fibrillation | CPT/HCPCS: 93005; 99204 ==

== ENCOUNTER → 2024-10-05 14:45 | Outpatient (BNVA) | payer MEDICARE, SELFPAY | PROVIDERS: PCP Physician Assistant; Visit Provider Psychiatry & Neurology Neurology | DX: I63.9 Cerebral infarction, unspecified (principal); R44.1 Visual hallucinations; I48.91 Unspecified atrial fibrillation; I10 Essential (primary) hypertension; E55.9 Vitamin D deficiency, unspecified | CPT/HCPCS: 99212 ==

== ENCOUNTER → 2025-03-22 13:36 | Outpatient (BNVA) | payer MEDICARE, SELFPAY | PROVIDERS: PCP Physician Assistant; Visit Provider Internal Medicine Cardiovascular Disease | DX: I48.20 Chronic atrial fibrillation, unspecified (principal); Z79.01 Long term (current) use of anticoagulants; Z79.82 Long term (current) use of aspirin; I35.0 Nonrheumatic aortic (valve) stenosis; I10 Essential (primary) hypertension; Z86.73 Personal history of transient ischemic attack (TIA), and cerebral infarction without residual deficits | CPT/HCPCS: 99214 ==

== ENCOUNTER → 2025-07-04 10:53 | Outpatient (BNVA) | payer MEDICARE, OTHER, SELFPAY | PROVIDERS: PCP Physician Assistant; Visit Provider Nurse Practitioner Family | DX: L82.1 Other seborrheic keratosis (principal); D22.5 Melanocytic nevi of trunk; D48.5 Neoplasm of uncertain behavior of skin | CPT/HCPCS: 11102; 99203 ==

== ENCOUNTER → 2025-07-17 11:19 | Outpatient (BNVA) | payer MEDICARE, OTHER, SELFPAY | PROVIDERS: PCP Physician Assistant; Visit Provider Nurse Practitioner Family | DX: C44.311 Basal cell carcinoma of skin of nose (principal); L57.8 Other skin changes due to chronic exposure to nonionizing radiation; D48.5 Neoplasm of uncertain behavior of skin | CPT/HCPCS: 69100; 99213 ==

== ENCOUNTER → 2025-08-22 09:03 | Outpatient (BNVA) | payer MEDICARE, OTHER, SELFPAY | PROVIDERS: PCP Physician Assistant; Visit Provider Dermatology | DX: C44.311 Basal cell carcinoma of skin of nose (principal); C44.212 Basal cell carcinoma of skin of right ear and external auricular canal; Z08 Encounter for follow-up examination after completed treatment for malignant neoplasm; Z85.828 Personal history of other malignant neoplasm of skin; C44.219 Basal cell carcinoma of skin of left ear and external auricular canal | CPT/HCPCS: 13152; 17311; 99214 ==

== ENCOUNTER 2025-08-25 09:40 | Outpatient (CLI) | payer MEDICARE, OTHER, SELFPAY | END 2025-08-25 09:41 | disposition home or self-care (01) | LOC: RAD 09:41 | PROVIDERS: PCP Physician Assistant; Visit Provider Internal Medicine Cardiovascular Disease | DX: I35.0 Nonrheumatic aortic (valve) stenosis (principal) | CPT/HCPCS: 93306 ==

== ENCOUNTER → 2025-09-26 09:44 | Outpatient (BNVA) | payer MEDICARE, OTHER, SELFPAY | PROVIDERS: PCP Physician Assistant; Visit Provider Dermatology | DX: C44.212 Basal cell carcinoma of skin of right ear and external auricular canal (principal) | CPT/HCPCS: 13152; 17311 ==

== ENCOUNTER 2025-10-30 08:55 | Outpatient (CLI) | payer MEDICARE, SELFPAY ==
[2025-10-30] VITALS (13 sets, daily range): BP systolic 109–144; BP diastolic 67–86; PULSE 62–95; RESP 12–22; TEMP 36.9; O2SAT 94–100; BMI 31.1
--- NOTE | 2025-10-30 09:00 | XACV_ITS ---
Exam Room: 2 Ht: 157 cm Wt: 77 kg BSA: 1.87 m2 Gender: Female : 1950 Any Known Allergies: Sulfa Exam Priority: Routine Procedure(s): Procedure Description: Diagnostic procedure Procedure Description: Left Heart Catheterization Procedure Description: Left ventriculography Procedure Description: Coronary Angiography Ivy DAMON; Diagnostic Cath Status: Elective Diagnostic Findings * Left Main has no disease. * Left Anterior Descending has no disease. * Proximal Right Coronary Artery: luminal irregularities 20% stenosis, SALMA: 3 flow. * Proximal Circumflex: minimal 30% stenosis, SALMA: 3 flow. * Coronary angiography shows right dominance. * Left heart cath was performed for unexplained shortness of breath and moderate to severe aortic valve stenosis with low gradient on echocardiogram.No significant obstructive coronary artery disease was noted.Peak to peak gradient was 13 mmHg which is in moderate rangeModerate aortic valve stenosis Nonobstructive coronary artery disease. Conclusions 1. There is minimal coronary artery disease with two vessel disease. 2. Normal left ventricular systolic function. Ejection fraction of 60%. Recommendations * Continue current medical management and risk factor modification. Diagnostic RX Recommendation: medical therapy and/or counseling LV EDP: 25 mmHg Ventriculography Ejection Fraction: 60.0 % Pressures Phase:Rest AO : 106 / 60 ( 81 ) @ 10:41:00 AM 125 / 70 ( 94 ) @ 10:43:00 AM 157 / 85 ( 122 ) @ 10:59:00 AM 163 / 89 ( 122 ) @ 10:59:00 AM LV : 172 / 2 / 25 @ 10:58:00 AM 175 / 33 / 23 @ 10:59:00 AM 162 / 8 / 20 @ 10:59:00 AM Valves Phase:DefaultPhase AV : 2.0 @ 11:05:29 AM AV Mean Gradient: 19.0 @ 11:05:29 AM Clinical Evaluation EBL: 5mL-10mL Procedural Details Procedure Consent Obtained. Admit Source: Out Patient. Pre-Procedure Time Out. Identified patient by full name and date of as verbalized by the patient/guarantor. Does the consent match the physician's order: Yes. Accurate & Complete Informed Consent: Yes. Inpatient/Outpatient History & Physical on Chart: Yes. If H&P is completed, is and addenduem needed: No; If yes, is the addendum complete: N/A. Visualize and Verify Site with Patient/Guarantor: N/A. Relevant Radiology Images available: Yes. The risks, benefits, and alternatives of sedation and/or procedure were discussed by physician. The patient agrees to continue. Procedure started. [facility] Clinical Fraility Score: 3: Managing Well. Equipment Processor Indications: Valvular Disease. Chest Pain Symptom Assessment: Typical Angina Symptoms. Correct patient, site and procedure confirmed by cath team. Current diagnosis: Unstable angina, Aortic Valve Stenosis. PERRLA. Strong, equal hand surgical coordinator bilaterally. Lungs clear x 5 lobes. IV Site on Arrival: 20 gauge in the left forearm. IV Fluids: 0.9% NaCl at KVO. 0 mL infused prior to engineer geophysical laboratory. Pre Procedural Pulses: bilateral radial was 1+. Pre Procedural Pulses: bilateral posterior tibial was Doppled. Pre Procedural Pulses: bilateral dorsalis pedis was Doppled. Oxygen started at 2liters/min via nasal canula. right radial was prepped with chloroprep then draped in the usual sterile fashion. right groin was prepped with chloroprep then draped in the usual sterile fashion. Physician notified. Baseline sample Acquired. HR: 90 BPM. Physician arrived. Physician scrubbed in. Immediate Pre-Procedure Time Out. Correct Patient: Yes; Correct Procedure: Yes; Correct Site: Yes; Correct Patient Position: Yes; Correct Supplies: Yes; Dried Flammable Prep: Yes; Blood Products Available: No;. Lidocaine 1% infiltrated to the right radial. Arterial access obtained. No blood return from sheath. Sheath removed . Manual pressure held to stop bleeding. Arterial access obtained. A 5 hungarian Chris catheter in over wire. Multiple views taken of right coronary artery. Catheter redirected to the LCA. Multiple views taken of left coronary artery. Catheter removed over the exchange wire. A 5 hungarian Angled Pig catheter in over wire. EDP Sample taken: LV 172/2,25; HR: 75 BPM; SpO2: 97%. LV gram performed in RIOS @ 10 mL/second for a total of 30 mL. EDP Sample taken: LV 175/33,23; HR: 110 BPM; SpO2: 98%. Pullback taken: LV 162/8,20; AO 157/85(122); Mean: 19mmHg, Peak to Peak: 2mmHg, SEP: 15sec/min; HR: 92 BPM; SpO2: 98%. Catheter removed over the exchange wire. Physician scrubbed out. Post Procedure: Pulses reassessed and unchanged. PERRLA. Strong, equal hand surgical coordinator bilaterally. No VTE prophylaxis required. Medication's Wasted: Lidocaine 1% = 18 mL. Medication's Wasted: Nitro = 49.8 mg. Medication's Wasted: Heparin = 1000 units. Medication's Wasted: Other = Fentanyl 25mcg. Total IV fluids: 50 mL. Post-op diagnosis: Non-obstructive CAD, Moderate Aortic Valve Stenosis. Complications: None. Estimated blood loss: 5mL-10mL. Responsiveness - Normal response to verbal stimuli; alert and oriented, PERRLA. Airway - Unaffected, no intervention required; spontaneous ventilation. Circulation: W/N/L, pulses unchanged. Nausea/Vomiting: No. A TR Band was successful obtaining hemostatsis at the Right Radial artery insertion site. Procedure completed. Patient transferred by stretcher to CPRU. Vital chart was stopped. Access Site Site: Right Radial artery Sheath Size: 6 Fr Hemostasis Method: TR Band Hemostasis Success: Successful Procedure Medications Start: 10:23 AM Stop: 10:23 AM Medication: Versed Amount: 1 mg Route: I.V. Start: 10:23 AM Stop: 10:23 AM Medication: Fentanyl Amount: 50 mcg Route: I.V. Start: 10:36 AM Stop: 10:36 AM Medication: Versed Amount: 1 mg Route: I.V. Start: 10:41 AM Stop: 10:41 AM Medication: Nitrogylcerin Amount: 200 mcg Route: I.A. Start: 10:44 AM Stop: 10:44 AM Medication: Heparin Amount: 5000 units Route: I.V. Start: 10:54 AM Stop: 10:54 AM Medication: Fentanyl Amount: 25 mcg Route: I.V. I, the attending physician, have reviewed and verified all procedure medications. Yes, all medications given per verbal order History/Risk Factors Hypertension: Yes Dyslipidemia: No Peripheral Arterial Disease (PAD): No Myocardial Infarction (OK): No Obesity: No Tobacco Use: Never Prior Interventions PCI: No CABG: No Valve Surgery: No Report Signatures Finalized by Raquel Haynes MD on 10/30/2025 11:18 AM
[2025-10-30 10:04] LABS: Hematocrit 48.0 % (36-47); Hemoglobin 15.40 g/dL (11.27-16.99); Mean Corpuscular HGB Conc 32.1 g/dL (30-55); Mean Corpuscular Hemoglobin 29.3 pg (27-33); Mean Corpuscular Volume 91.4 fl (85-98); Nucleated Red Blood Cells % 0 %; Platelet Count 297 10^3/cmm (157-399); Red Blood Count 5.25 10^6/uL (3.85-5.65); White Blood Count 9.16 10^3/uL (3.29-11.43)
[2025-10-30 10:12] LABS: Blood Urea Nitrogen 16 mg/dL (8-23); Calcium 9.6 mg/dL (8.5-10.5); Carbon Dioxide 25 mmol/L (22-29); Chloride 102 mmol/L (98-107); Glucose 93 mg/dL (65-115); Osmolality Calculated 289 mOsm/kg (285-295); Sodium 139 mmol/L (136-145)
[2025-10-30 10:22] LABS: Anion Gap 15.7 (5-19); Potassium 3.7 mmol/L (3.5-5.1)
--- NOTE | 2025-10-30 10:25 | W.PM.OPSFHP ---
Same Day Surgery H&P Indication for Procedure/HPI DATE OF PROCEDURE: October 30, 2025 CHIEF COMPLAINT/INDICATIONFOR SURGICAL PROCEDURE: Worsening of shortness of breath Unexplained shortness of breath Moderate to severe aortic valve stenosis with low pressure gradient Discrepancy between aortic valve, aortic valve area 1.0 cm? however mean gradient was 13 mmHg PREOP DIAGNOSIS: As above PLANNED PROCEDURE: Operation Date: 10/30/25 10:00 Proposed Procedures p Cardiac Catheterization - LHC w/wo LV & Coros(Left) - Raquel Haynes MD 75-year-old female past medical history significant for hypertension atrial fibrillation aortic valve moderate to severe stenosis with discrepancy between gradient and aortic valve area who is symptomatic with worsening of shortness of breath cannot walk more than 1-1/2 block she has to sit down to get over it. It is the reason patient has been brought in today for left heart cath and assess the aortic valve area after crossing the LV, she will be assessed for possible patient for TAVR in case aortic valve appeared to be severely stenotic with high gradient. We will also assess coronary bed for any obstructive coronary artery disease contributing to the symptoms. Patient has been explained all risk-benefit and alternative for the procedure. She agrees to it and would like to proceed with that. Medications/Allergies* Home Medications ?Medication ?Instructions ?Recorded ?Confirmed ?Type therapeutic multivitamin 10 ml PO DAILY 07/26/24 10/25/25 History vit C 250 mg-vit E 90 mg-zinc 40 1 cap PO DAILY 09/13/24 10/25/25 History mg-copper 1 [id number] capsule (PreserVision AREDS-2) atenolol 25 mg tablet 25 mg PO DAILY PRN Blood Pressure 09/22/24 10/25/25 History Allergies/Adverse Reactions Allergy/AdvReac Type Severity Reaction Status Date / Time Sulfa (Sulfonamide Allergy ALGY-Rash Verified 03/22/25 14:01 Antibiotics) Current Medications: Generic Name Dose Route Start Last Admin Trade Name Freq PRN Reason Stop Dose Admin Sodium Chloride 1,000 mls @ 50 mls/hr 10/30/25 09:00 10/30/25 09:18 Sodium Chloride 0.9% IV 10/31/25 04:59 Not Given .Q20H ONE Pertinent History/Comorbid Conditions* Medical History (Updated 09/22/24 @ 17:46 by Raquel Haynes MD) Aortic stenosis, moderate Acute cerebrovascular accident (CVA) due to occlusion of left posterior cerebral artery Hypertension Social History Smoking and tobacco/nicotine status: never used tobacco/nicotine Pertinent Exam Findings alert, oriented x 3, clear to auscultation bilaterally, regular rate & rhythm, operative site marked and procedure specific exam findings GENERAL: Patient is alert, awake and oriented x3. HEART: Regular S1 and S2. 2/6 systolic murmur LUNGS: Clear to auscultate bilaterally. CENTRAL NERVOUS SYSTEM: Grossly nonfocal. EXTREMITIES: Lower extremities with out edema bilaterally. Recommendations Surgery/Procedure today Other Plans: Left heart cath will be performed including PCI if indicated. Patient has been explained all risk-benefit and alternative for the procedure, patient understand 2% risk of stroke major bleed. Patient understand 5% risk of minor bleeding oozing infection hematoma contrast-induced nephropathy urgent or emergent vascular or bypass surgery. Patient agrees to it and would like to proceed with it. Coding Level of Care Code Acute Code for Rogerg Fwjitendra
--- NOTE | 2025-10-30 11:31 | PC.NURSE ---
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 Paient drowsy but awakens easily. A & 0 x 3. color television console monitor placed and vital signs obtained. TR band intact to the right wrist. No bleeding or hematoma noted. Palpable radial pulse. No other assessment changes noted from pre cath assessment. No concerns voiced at this time.
--- NOTE | 2025-10-30 13:30 | PC.NURSE ---
TR band off per protocol. Right wrist area cleansed with warm water and patted dry. A large band aid was applied to the site and loosely secured with coban. No bleeding or hematoma noted. There was a nickel sized bruise just proximal to the access site under the TR band. Palpable radial pulse. Patient tolerated well.
== END 2025-10-30 14:39 | disposition home or self-care (01) ==
PROVIDERS: PCP Physician Assistant; Visit Provider Internal Medicine Cardiovascular Disease
DX: I25.10 Atherosclerotic heart disease of native coronary artery without angina pectoris (principal); I10 Essential (primary) hypertension; I48.91 Unspecified atrial fibrillation; Z86.73 Personal history of transient ischemic attack (TIA), and cerebral infarction without residual deficits; I35.0 Nonrheumatic aortic (valve) stenosis
CPT/HCPCS: 36415; 80048; 85025; 93458; 99152; 99153; C1769; C1887; C1894; J1644; J2250; J3010; J3490; J7030; J9999; Q0163; Q9967